=== PATIENT | female | born 1945 | race Caucasian/White ===

== ENCOUNTER 2016-11-27 20:03 | Emergency (ER) | payer OTHER ==
[~2016-11-27] VITALS: Ht 165.1 cm; Wt 59.1 kg
[2016-11-27 20:12] VITALS: BP 126/67; PULSE 74; RESP 16; O2SAT 96
--- NOTE | 2016-11-27 20:50 | ED.REPORT ---
HPI-Abd Pain F 2 and Over Date of Service Nov 27, 2016 ED Provider: Gilberto Bowman DO The pt is a 71 y/o female w/ a hx of venous stasis, scoliosis, and osteoporosis presenting to the ED complaining of two days of bilateral foot paresthesias which is causing her some instability. This is accompanied by a week of lower extremity edema and redness but she denies pain, heat, or loss of sensation in the affected area. She reports falling asleep in her chair and not wearing her compression socks for the last week. Similar symptoms have affected her intermittently for the last 5 to 10 years and usually go away when she sleeps horizontally. She reports being evaluated for DVT and was diagnosed with faulty valves consistent w/ bilateral venous stasis. The pt was seen by her PCP recently, who was concerned about the level of edema. Nursing Notes Stated Complaint: NUMBNESS,LEG SWELLING FROM UC Chief Complaint: Extremity Trauma Nursing Notes Reviewed: Yes Allergies: Coded Allergies: tetracycline (Verified Allergy, Unknown, 11/27/16) General Time Seen by MD: 20:30 Chief Complaint Other (Bilateral foot paresthesias) Hx Obtained from: Patient Arrived by: Walk-in Sudden in Onset?: No Onset Occurred: 2 days ago Symptom Duration: Since onset Recent Healthcare: No recent hospitalization, Recent doctor visit Similar Sx Previous: Yes Past Medical History Past Medical History Venous stasis Scoliosis Osteoporosis Past Surgical History none reported Smoking History Unknown if Ever Smoker Ambulatory Status Ambulatory Status: Independent Review of Systems Review of Systems Note: Bilateral foot paresthesias Instability Bilateral LE edema and redness Denies LE heat or pain Constitutional: Denies: Chills, Fever Cardiovascular: Denies: Chest pain GI: Denies: Abdominal pain Complete sys rev & neg: except as marked. Physical Exam Initial Vital Signs Vital Signs (First) Date Time Temp Pulse Resp B/P Pulse Ox O2 Delivery O2 Flow Rate FiO2 11/27/16 20:12 35.5 74 16 126/67 96 Room Air Initial VS: Reviewed Head / Eyes: Atraumatic, Normocephalic, PERRL ENT: Mucous membranes moist, Conjunctiva normal, No scleral icterus Neck: Supple, Non-tender, Full range of motion Neurologic: Alert, Oriented, Nonfocal Psychiatric: Mood/affect normal, Behavior normal, Normal thought content General / Constitutional: Awake, Alert, No apparent distress Respiratory / Chest: Atraumatic, Breath sounds NL, No respiratory distress Cardiovascular: Heart rate NL, Regular rhythm, Heart sounds NL Loud biphasic phases audible w/ handheld Doppler No DVT No acute arterial insufficiency Abdomen: Atraumatic, Soft, Non-tender Back: Atraumatic, Inspection NL, Full range of motion Skin: No rash, Warm, Dry dry, cracked skin bilaterally Lower Extremity / Pelvis / MS: Full range of motion lower extremity edema, R>L Ankle / Foot Ankle / Foot: Full range of motion Paresthesia at bottom of feet bilaterally but sensation intact Interpretation & Diagnostics Interpretation & Diagnostics: US VENOUS LEG DUPLEX UNILATERAL, RIGHT IMPRESSION: No evidence of deep vein thrombosis involving the right lower extremity. Dictated by: Teena Wright MD, PhD on 11/27/2016 at 21:43 Approved by: Teena Wright MD, PhD on 11/27/2016 at 21:43 Lab Results Interpretation Result Diagram: 11/27/16205211/27/162052 Test 11/27/16 20:53 White Blood Count 1.9th/mm3 (3.8-10.1) Red Blood Count 4.07mil/mm3 (3.90-5.20) Hemoglobin 12.7g/dL (12.0-15.6) Hematocrit 37.9% (35.0-46.0) Mean Corpuscular Volume 93.1fL (81-100) Mean Corpuscular Hemoglobin 31.2pg (27.0-35.0) Mean Corpuscular Hemoglobin Concent 33.5% (32.0-37.0) Red Cell Distribution Width 14.9% (12.3-15.4) Platelet Count 170bil/L (150-400) Neutrophils (%) (Auto) 52.1% (40-74) Lymphocytes (%) (Auto) 33.0% (14-46) Monocytes (%) (Auto) 13.4% (4-12) Eosinophils (%) (Auto) 1.0% (0-5) Basophils (%) (Auto) 0.5% (0-3) Sodium Level 132mEq/L (134-144) Potassium Level 4.3mEq/L (3.5-5.2) Chloride Level 93mEq/L (97-108) Carbon Dioxide Level 25mmol/L (18-29) Blood Urea Nitrogen 11mg/dL (8-27) Creatinine 0.54mg/dL (0.57-1.00) Estimat Glomerular Filtration Rate 159mL/min (>59) Glucose Level 93mg/dL (60-99) Calcium Level 9.6mg/dL (8.5-10.1) Total Bilirubin 0.4mg/dL (0.0-1.2) Aspartate Amino Transf (AST/SGOT) 60U/L (0-50) Alanine Aminotransferase (ALT/SGPT) 57U/L (0-32) Alkaline Phosphatase 104U/L (25-165) C-Reactive Protein 0.4mg/dL (0.0-0.5) Pro-B-Type Natriuretic Peptide 446.7pg/mL (0-301) Total Protein 6.5g/dL (6.4-8.4) Albumin 4.0g/dL (3.4-5.0) Hold Bob Top Tube Received (Received) Pulse Oximetry Interpretation Pulse Oximetry Interpretation: 96% on room air Pulse Oximetry: Pulse Ox normal Re-Eval/Medical Decision Med Decision/Clinical Course Very pleasant 71-year-old female with bilateral dependent edema that is leading to gait instability. Her right leg became a bit more erythematous today so she was sent in for evaluation. Ultrasound was performed of the right leg and there is no DVT found. Her laboratory work is reassuring. I do believe that she is developing cellulitis in the right leg and that is contributing to her symptoms. She has good sensation however she complains of tingling type sensation when her feet swell. This is not consistent with a stroke. This is consistent with local nerve irritation from the edema. She was observed in the emergency department received IV antibiotics. I have her elevate her feet and she actually looked much better. We did get her a walker to assist with ambulation and she felt very comfortable about this. She is very hesitant to be on antibiotics and she certainly does not wish to be in the hospital. She is followed by a natural path. She did agree to a Bactrim and Augmentin combination for a few days and she agrees to have follow-up on this in 24-48 hours. Source of Hx: Old records Re-Evaluation/Progress : Time of Eval: 22:41 Patient Status: Condition improved Re-Evaluation/Progress Note: Pt rechecked, who is comfortable. The diagnosis and plan for discharge are discussed. The pt understands and agrees with the plan. All questions are addressed at this time. Counseled Regarding: Diagnosis, Lab results, Need for follow-up, When/why to return to ED Discharge & Departure Impression: Primary Impression: Cellulitis of right lower extremity Disposition: Home Discharge Condition All VS Reviewed: Yes Condition: Stable Patient Instructions: Cellulitis (ED) Additional Instructions: Take Augmentin and Bactrim twice daily for 5 days. Elevate your foot as much as possible. Have your symptoms re-evaluated in 24 to 48 hours. Call your primary care physician in the morning to arrange a follow up appointment next week. Return to the emergency department if you develop any new or worsening symptoms. Referrals: Lucila Retana ND, LAc (PCP) Scribe Attestation Portions of this note were transcribed by Keith Dale and Amber Jordan. I, Dr. Bowman personally performed the history, physical exam and medical decision-making ; I reviewed and confirmed the accuracy of the information in the transcribed note. Signed by: Hayes Pinzon, 11/27/16 and [id number]. Lucila Retana ND, LAc Moses, Tai F Nov 27, 2016 20:50 AMBER JORDAN Nov 27, 2016 22:19 Gilberto Bowman DO Nov 28, 2016 00:11
[2016-11-27 21:04] LABS: Platelet Count 170 bil/L (150-400)
[2016-11-27 21:06] LABS: BASOPHILS % (AUTO) 0.5 % (0-3); MONOCYTES % (AUTO) 13.4 % (4-12); Mean Corpuscular Hemoglobin 31.2 pg (27.0-35.0); Mean Corpuscular Volume 93.1 fL (81-100); NEUTROPHILS % (AUTO) 52.1 % (40-74)
--- NOTE | 2016-11-27 21:44 | DRSVH ---
PROCEDURE: US VEINOUS LEG DUPLEX UNILATERAL, RIGHT INDICATIONS: right leg swelling TECHNIQUE: Real-time imaging, as well as color and pulse Doppler interrogation, were performed of the lower extr emity deep veins from the inguinal ligament to the popliteal fossa. COMPARISON: None. FINDINGS: The deep veins are normally compressible, and free of intraluminal thrombus. Color and pu lse Doppler demonstrate normal phasic intraluminal flow. There is normal augmentation response to di stal compression maneuver. IMPRESSION: No evidence of deep vein thrombosis involving the right lower extremity. Dictated by: Teena Wright MD, PhD on 11/27/2016 at 21:43 Approved by: Teena Wright MD, PhD on 11/27/2016 at 21:43
[2016-11-27] MEDS ORDERED: cefTRIAXone Inj 2,000 MG in Dextrose 5% Minibag Plus 50 ML IV ONE (21:45)
[2016-11-27 23:27] VITALS: BP 142/76; PULSE 68; RESP 14; O2SAT 96
== END 2016-11-27 23:27 | disposition home or self-care (01) ==
LOC: SED 20:03
DX: L03.115 Cellulitis of right lower limb (principal); Z88.1 Allergy status to other antibiotic agents
CPT/HCPCS: 36415; 80053; 83880; 85025; 86140; 87040; 93971; 96365; 99285; J0696

== ENCOUNTER 2016-11-30 22:43 | Inpatient (IN) | payer OTHER, MEDICARE ==
[~2016-11-30] VITALS: Ht 157.5 cm; Wt 63.0 kg
[2016-11-30 22:49] VITALS: BP 142/71; PULSE 67; RESP 16; O2SAT 99
--- NOTE | 2016-12-01 00:10 | ED.REPORT ---
HPI-General Illness Date of Service Dec 01, 2016 ED Provider: Dr. Seaman Pt is a 71 year old female with a hx of scoliosis and osteoporosis presenting to the ED complaining of neurological symptoms slowly progressively worsening over the past few weeks. Associated symptoms include feeling extremely weak, disoriented, trouble walking, numbness and tingling in bilateral LEs, LE swelling, nausea. Denies confusion of location, vomiting, diarrhea, bowel or bladder incontinence. Pt reports that when she has been to the chiropractor the numbness in her legs has resolved. She was supposed to follow up with a back specialist but has not seen one yet. Pt was seen in the ED 4 days ago for the LE swelling and received an ultrasound showing no signs of a blood clot. Pt has been taking antibiotics, but not water pills. Nursing Notes Stated Complaint: CANT STAND, WEAK Chief Complaint: General Complaint Nursing Notes Reviewed: Yes Allergies: Coded Allergies: tetracycline (Verified Allergy, Unknown, 11/30/16) Scheduled Amoxicillin/Clav K 875-125 mg (Amoxicillin/Clav K 875-125 mg) 875 Mg Tab 1 TABLET PO BID Sulfamethoxazole/Trimeth 400-80 mg (Bactrim 400-80 mg) 1 Each Tablet 1 TABLET PO BID Thyroid,Pork (Wilson Thyroid) 90 Mg Tablet 90 MG PO DAILY General Time Seen by MD: 00:10 Chief Complaint Weakness Hx Obtained From: Patient Arrived By: Walk-in Sudden in Onset?: No Onset Occurred: More than a week ago... (3 weeks) Symptom Duration: Intermittent Severity: Current: No pain currently Severity: Maximum: No pain Recent Healthcare: No recent hospitalization, Recent doctor visit Similar Sx Previous: No Past Medical History Past Medical History chronic loose stools Venous stasis Scoliosis Osteoporosis Past Surgical History denies Smoking History Unknown if Ever Smoker Ambulatory Status Independent Review of Systems Full Review of Systems GI: Reports: Nausea, Denies: Diarrhea, Vomiting Female: Denies: Incontinence Musculoskeletal: Reports: Extremity swelling Neurologic: Reports: Numbness, Problem walking, Weakness, Denies: Confusion Complete sys rev & neg: except as marked. Physical Exam Vital Signs Vital Signs Date Time Temp Pulse Resp B/P Pulse Ox O2 Delivery O2 Flow Rate FiO2 12/01/16 02:15 66 14 138/69 98 Room Air 11/30/16 22:49 35.8 67 16 142/71 99 Room Air Initial VS: Reviewed Head / Eyes: Atraumatic, Normocephalic, PERRL ENT: Mucous membranes moist, Conjunctiva normal, No scleral icterus Neck: Supple, Non-tender, Full range of motion Respiratory: Breath sounds normal, Clear to auscultation, No respiratory distress Cardiovascular: Regular rate & rhythm, Heart sounds normal, Intact distal pulses Abdomen / GI: Soft, Non-tender, No guarding, No rebound, No distention Extremities: Vascular intact, Neuro intact Skin: Warm, Dry, No cyanosis Neurologic: Alert, Oriented, Nonfocal Psychiatric: Mood/affect normal, Behavior normal, Normal thought content General/Constitutional: Awake, Alert, No acute distress Distress / Hydration: Positive: Dehydration mild Lower Extremity / Pelvis / MS: No deformity, Neurologic intact, Vascular intact Bilateral edema Interpretation & Diagnostics Lab Results Interpretation Result Diagram: 12/01/16 0400 12/01/16 0400 Test 12/01/16 00:50 12/01/16 01:00 Urine Color Yellow (YELLOW) Urine Appearance Clear (CLEAR,HAZY) Urine pH 7.0 (5.0-8.0) Urine Specific [place] 1.015 (1.003-1.035) Urine Protein Negativemg/dL (NEG,TRACE) Urine Glucose (UA) Negativemg/dL (NEGATIVE) Urine Ketones Tracemg/dL (NEGATIVE) Urine Occult Blood Negative (NEGATIVE) Urine Nitrite Negative (NEGATIVE) Urine Bilirubin Negative (NEGATIVE) Urine Urobilinogen Normalmg/dL (NORMAL) Urine Leukocyte Esterase Negative (NEGATIVE) Urine RBC 0-2/hpf (0-2) Urine WBC 0-5/hpf (0-5) Urine Epithelial Cells Occasional/hpf (NONE-MOD) Urine Crystals Amorphous phosphates Urine Bacteria None/hpf (NONE-FEW) Urine Hyaline Casts None/lpf (NONE) Urine Granular Casts None seen (NONE SEEN) Urine Waxy Casts None seen (NONE SEEN) Urine Red Blood Cell Casts None seen (NONE SEEN) Urine White Blood Cell Casts None seen (NONE SEEN) Urine Mucus Present (None Seen) Urine Trichomonas None seen (NONE SEEN) Urine Yeast None (NONE SEEN) Urine Culture Reflexed Not indicated Prothrombin Time 9.9sec (8.1-12.5) Prothromb Time International Ratio 0.93ratio Activated Partial Thromboplast Time 30.8sec (22.8-33.0) Magnesium Level 1.6mg/dL (1.6-2.6) Troponin T 0.014ug/L (0.0-0.011) Pro-B-Type Natriuretic Peptide 378pg/mL (0-301) ECG Interpretation ECG Interpretation: Prolonged HI interval. Probable left ventricular hypertrophy. Probable inferior infarct, old. Anterolateral Q waves, probably due to LVH. Time: 01:53 Interpreted by: ED physician Normal ECG Interpretation: Normal rate (62), Normal sinus rhythm X-Ray Chest Interpretation Chest Xray Interpretation: No acute findings. Interpretation / Wet Read by: Wet read ED physician CT C-Spine Interpretation CONCLUSION: No evidence of fracture or subluxation. Degenerative changes and disc bulge with central canal stenosis at L4-5. Osteopenia. Right nephrolithiasis. Other findings as above. This report was transmitted to the emergency room at 12/01/2016 - 12:56:16 AM PDT. Study type: CT no contrast Interpretation / Wet Read by: Interpret - Radiologist Re-Eval/Medical Decision Med Decision/Clinical Course 71-year-old female presents with progressive numbness tingling weakness in her legs. Pattern of her weakness and numbness appears consistent with spinal stenosis. A CT of the area and indeed shows significant narrowing at the L5-L6 level as predicted. She incidentally has cellulitis of her legs that is initially improving after IV antibiotics and oral antibiotics at home. Admitted now unable to walk with plan for PT evaluation, spine surgery evaluation, and social service evaluation to determine whether she can function at home or will require rehabilitation. We will continue ongoing therapy for her cellulitis. Time of Eval: 02:40 Patient Status: Condition improved Re-Evaluation/Progress Note: Discussed CT and RAD results. Discussed plan for admission. Pt understands and agrees. Consultation : Referral / Consult Name: Deepak Pereira MD Consulted With: Hospitalist Call Returned at: 02:45 Director Of Consumer Affairs: Will see patient, Agrees with plan, Accepts admit Counseled Regarding: Diagnosis, Lab results, Need for follow-up, When/why to return to ED Discharge & Departure Primary Impression: Spinal stenosis of lumbar region Additional Impressions: Back pain Cellulitis of right lower extremity Disposition: ADMITTED TO HOSPITAL Discharge Condition All VS Reviewed: Yes Condition: Improved Referrals: Lucila Retana ND, LAc (PCP) Scribe Attestation Portions of this note were transcribed by Irena Juan. I, Dr. Seaman personally performed the history, physical exam and medical decision-making; I reviewed and confirmed the accuracy of the information in the transcribed note. Signed by: Malu Randolph, 11/30/2016 at 0300. copies to: Lucila Retana ND, Eugene Dietz MD Dec 01, 2016 00:10 IRENA JUAN Dec 01, 2016 00:18 Calcium Level 9.3mg/dL (8.5-10.1) Magnesium Level 1.6mg/dL (1.6-2.6) Total Bilirubin 0.3mg/dL (0.0-1.2) Aspartate Amino Transf (AST/SGOT) 68U/L (0-50) Alanine Aminotransferase (ALT/SGPT) 66U/L (0-32) Alkaline Phosphatase 109U/L (25-165) Troponin T 0.014ug/L (0.0-0.011) Pro-B-Type Natriuretic Peptide 378pg/mL (0-301) Total Protein 6.6g/dL (6.4-8.4) Albumin 3.9g/dL (3.4-5.0) ECG Interpretation ECG Interpretation: Prolonged HI interval. Probable left ventricular hypertrophy. Probable inferior infarct, old. Anterolateral Q waves, probably due to LVH. Time: 01:53 Interpreted by: ED physician Normal ECG Interpretation: Normal rate (62), Normal sinus rhythm X-Ray Chest Interpretation Chest Xray Interpretation: No acute findings. Interpretation / Wet Read by: Wet read ED physician CT C-Spine Interpretation CONCLUSION: No evidence of fracture or subluxation. Degenerative changes and disc bulge with central canal stenosis at L4-5. Osteopenia. Right nephrolithiasis. Other findings as above. This report was transmitted to the emergency room at 12/01/2016 - 12:56:16 AM PDT. Study type: CT no contrast Interpretation / Wet Read by: Interpret - Radiologist Re-Eval/Medical Decision Time of Eval: 02:40 Patient Status: Condition improved Re-Evaluation/Progress Note: Discussed CT and RAD results. Discussed plan for admission. Pt understands and agrees. Consultation : Referral / Consult Name: Deepak Pereira MD Consulted With: Hospitalist Call Returned at: 02:45 Director Of Consumer Affairs: Will see patient, Agrees with plan, Accepts admit Counseled Regarding: Diagnosis, Lab results, Need for follow-up, When/why to return to ED Discharge & Departure Disposition: ADMITTED TO HOSPITAL Discharge Condition All VS Reviewed: Yes Condition: Improved Referrals: Lucila Retana ND, LAc (PCP) Malu Attestation Portions of this note were transcribed by Irena Juan. I, Dr. Seaman personally performed the history, physical exam and medical decision-making; I reviewed and confirmed the accuracy of the information in the transcribed note. Signed by: Malu Randolph, 11/30/2016 at 0300. copies to: Lucila Retana ND, Eugene Dietz MD Dec 01, 2016 00:10 IRENA JUAN Dec 01, 2016 00:18
[2016-12-01] MEDS ORDERED: Ondansetron 2 mg/mL 2 mL Inj IVPUSH ONE (00:25)
[2016-12-01 01:09] LABS: BASOPHILS % (AUTO) 0.3 % (0-3); MONOCYTES % (AUTO) 13.8 % (4-12); Mean Corpuscular Hemoglobin 31.8 pg (27.0-35.0); Mean Corpuscular Volume 91.1 fL (81-100); NEUTROPHILS % (AUTO) 57.7 % (40-74); Platelet Count 164 bil/L (150-400)
[2016-12-01 01:27] LABS: INR 0.93 ratio
[2016-12-01 01:35] LABS: TROPONIN T 0.014 ug/L (0.0-0.011)
[2016-12-01 01:42] LABS: APPEARANCE,URINE CLEAR (CLEAR,HAZY); COLOR,URINE YELLOW (YELLOW); OCCULT BLOOD,URINE NEGATIVE (NEGATIVE); UROBILINOGEN,URINE NORMAL (NORMAL)
[2016-12-01 01:45] LABS: Magnesium 1.6 mg/dL (1.6-2.6)
[2016-12-01 02:15] VITALS: BP 138/69; PULSE 66; RESP 14; O2SAT 98
[2016-12-01] MEDS ORDERED: Polyethylene Glycol (PEG) 17 Gm Powder PO PRN (02:55)
[2016-12-01] MEDS ORDERED: Alum-Mag Hydrox-Simeth 30 mL Suspension PO PRN (02:55)
[2016-12-01] MEDS ORDERED: THYR90TA PO (03:04)
[2016-12-01] MEDS ORDERED: SULF1TAB34 PO (03:04)
[2016-12-01] MEDS ORDERED: AGM875T PO (03:04)
--- NOTE | 2016-12-01 03:05 | PCM.HPMED ---
Subjective Date of Service Dec 01, 2016 Primary Provider: Admitting Physician: Primary Care Physician: Lucila Retana ND, LAc Attending Physician: Admit Status: From the Emergency Department, 23-Hour Observation, Non-Telemetry Chief Complaint: Unable to function at home History of Present Illness: Kathryn Rodriguez is a 71 year old female with Scoliosis and osteoporosis presenting to [facility] emergency department complaining of worsening back pain Patient complaining of difficulty walking due to back pain, progressively worsening over the past few weeks. Associated symptoms include feeling extremely weak, bilateral foot paresthesias which is causing her some instability, leg swelling and some nausea. Pain improves with patient massaging her lower back. The leg swelling were chronic due to venous stasis but swelling seems to be more than baseline. Denies any trauma or falls recently. Denies any vomiting or diarrhea, bowel or bladder incontinence. Pt reports that when she has been to the chiropractor the numbness in her legs has resolved. She was supposed to follow up with a back specialist but has not seen one yet. She was recently diagnosed with right leg swelling and cellulitis and received an ultrasound showing no signs of a blood clot. She was on Bactrim and Augmentin , she has been taking them and have a few tabs left. Case discussed with Dr Seaman. Ct scan confirmed Degenerative changes and disc bulge with central canal stenosis at L4-5. Plans to admit for further treatment Review of Systems: Pertinent positives as noted in HPI. All other systems were reviewed and are negative Allergies Coded Allergies: tetracycline (Verified Allergy, Unknown, 11/30/16) Home Medications Several herbal supplements Armor thyroid (dose unclear) PMH chronic loose stools Venous stasis Scoliosis Hypothyroidism Osteoporosis . Surgical History Right Mastectomy Tonsillectomy Family History Father had heart attack when he was older Social History Hx Alcohol Use: No Hx Substance Use: No Hx Tobacco Use: No Smoking Status: Never Smoker Living Arrangement: Alone ([place] from [place]) Exam Vital Signs Vital Sign - Last Date Time Temp Pulse Resp B/P Pulse Ox O2 Delivery O2 Flow Rate FiO2 12/01/16 02:15 66 14 138/69 98 Room Air 11/30/16 22:49 35.8 Exam General: Alert, Oriented X3, Cooperative, No acute Distress elderly woman Eyes: PERRLA, Scleral Anicteric Mouth: Mouth Normal, Mucous Membranes Moist/[place] Neck: Supple, no Thyromegaly, trachea central. Chest & Lungs: Clear to auscultation & percussion, No adventitious breath sounds, no crackles, no wheeze Cardiovascular: Normal S1, Normal S2, No Rubs/Gallops, Regular Rate/Rhythm, soft systolic murmur (No JVD, no peripheral edema) Pulses: Radial (present and equal), Dorsalis Pedi (present and equal) Abdomen: Soft, Non-tender, Non-distended, Normoactive bowel tones. Musculoskeletal: Unremarkable. Normal range of motion, no swollen or erythematous joints Extremities: No edema, no cyanosis, no clubbing. Skin: No rashes. Warm and dry, no erythematous areas +Venous stasis changes to both legs Neurological: Grossly neurologically intact, has generalized weakness, Normal Speech, Sensation Intact Lymphatic: Lymph nodes Cervical and Axillary not palpable. Lab and Diagnostics Labs Laboratory Tests Test 12/01/16 00:50 12/01/16 01:00 Urine Color Yellow (YELLOW) Urine Appearance Clear (CLEAR,HAZY) Urine pH 7.0 (5.0-8.0) Urine Specific [place] 1.015 (1.003-1.035) Urine Protein Negativemg/dL (NEG,TRACE) Urine Glucose (UA) Negativemg/dL (NEGATIVE) Urine Ketones Tracemg/dL (NEGATIVE) Urine Occult Blood Negative (NEGATIVE) Urine Nitrite Negative (NEGATIVE) Urine Bilirubin Negative (NEGATIVE) Urine Urobilinogen Normalmg/dL (NORMAL) Urine Leukocyte Esterase Negative (NEGATIVE) Urine RBC 0-2/hpf (0-2) Urine WBC 0-5/hpf (0-5) Urine Epithelial Cells Occasional/hpf (NONE-MOD) Urine Crystals Amorphous phosphates Urine Bacteria None/hpf (NONE-FEW) Urine Hyaline Casts None/lpf (NONE) Urine Granular Casts None seen (NONE SEEN) Urine Waxy Casts None seen (NONE SEEN) Urine Red Blood Cell Casts None seen (NONE SEEN) Urine White Blood Cell Casts None seen (NONE SEEN) Urine Mucus Present (None Seen) Urine Trichomonas None seen (NONE SEEN) Urine Yeast None (NONE SEEN) Urine Culture Reflexed Not indicated White Blood Count 2.9th/mm3 (3.8-10.1) Red Blood Count 4.15mil/mm3 (3.90-5.20) Hemoglobin 13.2g/dL (12.0-15.6) Hematocrit 37.8% (35.0-46.0) Mean Corpuscular Volume 91.1fL (81-100) Mean Corpuscular Hemoglobin 31.8pg (27.0-35.0) Mean Corpuscular Hemoglobin Concent 34.9% (32.0-37.0) Red Cell Distribution Width 14.9% (12.3-15.4) Platelet Count 164bil/L (150-400) Neutrophils (%) (Auto) 57.7% (40-74) Lymphocytes (%) (Auto) 27.2% (14-46) Monocytes (%) (Auto) 13.8% (4-12) Eosinophils (%) (Auto) 1.0% (0-5) Basophils (%) (Auto) 0.3% (0-3) Prothrombin Time 9.9sec (8.1-12.5) Prothromb Time International Ratio 0.93ratio Activated Partial Thromboplast Time 30.8sec (22.8-33.0) Sodium Level 125mEq/L (134-144) Potassium Level 4.5mEq/L (3.5-5.2) Chloride Level 85mEq/L (97-108) Carbon Dioxide Level 23mmol/L (18-29) Blood Urea Nitrogen 10mg/dL (8-27) Creatinine 0.82mg/dL (0.57-1.00) Estimat Glomerular Filtration Rate 98mL/min (>59) Glucose Level 85mg/dL (60-99) Calcium Level 9.3mg/dL (8.5-10.1) Magnesium Level 1.6mg/dL (1.6-2.6) Total Bilirubin 0.3mg/dL (0.0-1.2) Aspartate Amino Transf (AST/SGOT) 68U/L (0-50) Alanine Aminotransferase (ALT/SGPT) 66U/L (0-32) Alkaline Phosphatase 109U/L (25-165) Troponin T 0.014ug/L (0.0-0.011) Pro-B-Type Natriuretic Peptide 378pg/mL (0-301) Total Protein 6.6g/dL (6.4-8.4) Albumin 3.9g/dL (3.4-5.0) Result Diagram: 12/01/169912/01/1699 X-Rays, CTs and MRIs US VENOUS LEG DUPLEX UNILATERAL, RIGHT IMPRESSION: No evidence of deep vein thrombosis involving the right lower extremity. Dictated by: Teena Wright MD, PhD on 11/27/2016 at 21:43 Approved by: Teena Wright MD, PhD on 11/27/2016 at 21:43 CT C-Spine Interpretation CONCLUSION: No evidence of fracture or subluxation. Degenerative changes and disc bulge with central canal stenosis at L4-5. Osteopenia. Right nephrolithiasis. Other findings as above. This report was transmitted to the emergency room at 12/01/2016 - 12:56:16 AM PDT. Study type: CT no contrast Interpretation / Wet Read by: Interpret - Radiologist Assessment & Plan Kathryn Rodriguez is a 71 year old female with Scoliosis and osteoporosis presenting to [facility] emergency department complaining of worsening back pain 1 Acute on Chronic back pain due to Spinal L4-L5 stenosis. Present on admission Chronic issues now causing some disability for the patient. Patient lives alone and independently - Physical therapy assessment - Orthopedic consultation to consider surgical options - Oxycodone PRN pain - Social work consultation 2 Right leg cellulitis. Present on admission. Improving and resolving Treated with Bactrim and Augmentin. No evidence of Deep vein thrombosis. No Urinary tract infections - continue Augmentin daily 3 Hyponatremia. Present on admission Suspect due to hypovolemia and dehydration. Thyroid disease cause be a cause - trial of fluids and monitor for response - patient not on any diuretics 4 Mild elevated transaminase. Present on admission - Hepatitis panel ordered including Hepatitic C 5. Hypothyroidism - checking TSH - Acetaminophen as needed for mild pain/fever/headache - Bowel regimen as needed - Antiemetic as needed Patient is admitted under observation status with expected length of stay less than 2 midnights due to severity of presenting symptoms, risk of adverse event, and complexity of treatment plan . VTE Prophylaxis: Sub-Q Heparin (Unfractionated) Resuscitation Status: CPR: Attempt Resuscitation Deepak Pereira MD Dec 01, 2016 03:05
[2016-12-01 04:07] VITALS: BP 135/76; PULSE 71; RESP 14; O2SAT 99
[2016-12-01 04:08] LABS: BASOPHILS % (AUTO) 0.4 % (0-3); EOSINOPHILS % (AUTO) 0.8 % (0-5); MONOCYTES % (AUTO) 17.1 % (4-12); Mean Corpuscular Volume 91.2 fL (81-100); NEUTROPHILS % (AUTO) 45.3 % (40-74); Platelet Count 147 bil/L (150-400)
--- NOTE | 2016-12-01 04:30 | NUR ---
Admit Pt admitted to floor via stretcher by Kyle Gant RN. Report given by Kyle Gant RN. Pt slide from stretcher to bed due to general weakness. BP slightly elevated and temp was 35.3 which is consistent with ED vitals. Pt reported having zero pain.
[2016-12-01 04:52] VITALS: BP 152/73; PULSE 69; RESP 16; O2SAT 97
[2016-12-01] MEDS: 0.9% Sodium Chloride 1,000 ML IV SCH ×4 (05:16→23:01)
[2016-12-01 08:00] VITALS: BP 136/63; PULSE 70; RESP 18; O2SAT 92
--- NOTE | 2016-12-01 09:15 | DRSVH ---
PROCEDURE: X-RAY CHEST ONE VIEW, PORTABLE ([id number]) INDICATIONS: weakness TECHNIQUE: One view of the chest was acquired. COMPARISON: [facility], CR, XR CHEST 2VW, 03/19/2016, 15:49. FINDINGS: Surgical changes and devices: Right axillary surgical clips. Lungs and pleura: No pleural effusions or pneumothorax. Lung volumes are increased and the hemidiap hragms are flattened. Ill-defined density projected over the right upper lobe at the level of the fi rst anterior rib. Lungs otherwise are clear. Mediastinum: Mediastinal contours appear normal. Heart size is normal. Bones and chest wall: No suspicious bony lesions. Overlying soft tissues appear unremarkable. IMPRESSION: Lung volumes are increased suggesting COPD, correlate with pulmonary functions test. Ill-defined spiculated density projected over the right upper lobe at the level of the first right an terior and rib which may be related to summation shadow or costochondral calcification but pulmonary nodule cannot be excluded. When clinically feasible recommend 2 view chest radiograph for further as sessment. Dictated by: Familia Winston [facility] Interpreted: Teena Wright MD on 12/01/2016 at 9:12 Transcribed by: JUDY on 12/01/2016 at 9:14 Approved by: Teena Wright MD, PhD on 12/01/2016 at 11:27
[2016-12-01] MEDS: Amoxicillin-Clav 875-125 mg Tablet PO SCH ×2 (09:51→19:53)
[2016-12-01] MEDS: Heparin 5,000 Unit/mL Inj SUBQ SCH ×2 (09:51→17:33)
--- NOTE | 2016-12-01 09:57 | DRSVH ---
PROCEDURE: CT LUMBAR SPINE WITHOUT CONTRAST ([id number]) INDICATIONS: spinal stenosis suspected--bilat leg numbness, wea TECHNIQUE: Noncontrast 3 mm thick sections acquired from the T12 level to the sacrum. Sagittal and coronal refo rmats were constructed. For radiation dose reduction, the following was used: automated exposure co ntrol. COMPARISON: None. FINDINGS: Image quality: Excellent. Bones: There is trace retrolithesis or L1 on L2, L2 on L3, L3 on L4 and trace anterolithesis of L4 o n L5. Degnerative vaccuum disk are present at L4-5. No acute vertebral body compression fractures. No suspicious lytic or blastic bony lesions. Multilevel disc bulges are present from L1-2 through L5-S1. Minimal spinal stenosis is present at L1 -2, L2-3, moderate L3-4, severe L4-5, moderate L5-S1. Mild to moderate bilateral foraminial narrowin g at L1-2, moderate right and moderate to severe left L2-3, moderate bilateral L3-4, moderate right a nd severe left L4-5, mild bilateral L5-S1. Mulilevel facet arthropathy. Soft tissues: No retroperitoneal masses or hematomas. Hyperdenisity is present in the left kidney, measuring 6 mm. Four punctate calcifications, nonobstructing in the right kidney. Visualized aorta i s normal in caliber. IMPRESSION: 1. Multilevel degenerative changes. 2. Prominent spinal stenosis , most notable at L4-5, secondary to disc bulge and facet arthropathy. 3. Multilevel foraminal narrowing, most notable at L2-3, L4-5, primarly secondary to facet arthropat hy. 4. Multiple nonobstructing renal calcifications, right greater than left. The hyperdense focus coul d also represent a hyperdense cyst, given the less prominent appearance of hyperdensity. Dictated by: Yissel Palacio M.D. on 12/01/2016 at 9:39 Approved by: Yissel Palacio M.D. on 12/01/2016 at 9:55
[2016-12-01 12:00] VITALS: BP 138/70; PULSE 67; RESP 16; O2SAT 93
--- NOTE | 2016-12-01 13:08 | NUR ---
Social Work Note - Initial Assessment: D/A: See Initial Assessment. The Pt is a 71 y/o female that was admitted for spinal stenosis loss of ambulation ability. The Pt's PCP is NAZARIO Coyne and her insurance is [facility] [employer] [facility], no LTC or VA benefits reported. EMR reviewed. SW met with the Pt initial and then the Pt's friend Kellen at a later date. Pt was originally unable to participate in the initial assessment due to weakness. The Pt lives alone in a one story home in [place]. The Pt does not have an Advanced Directive on file, paperwork provided. The Pt has one daughter who lives in [facility] who is flying out tonight and should be here tomorrow 12/02/16 afternoon. The Pt's friend reported that the Pt was living independently up until a couple weeks ago, friend has been checking-in and helping as needed for the last week. The Pt continued to drive before hospitalization and uses a walker. No HH/SNF history reported. Pt discussed in morning rounds, Pt likely to discharge in 1-2 more days. PT adebayo requested. SW to follow. P: Pt not medically stable for discharge, likely to discharge in 1-2 days. PT adebayo requested. Daughter to arrive from [place] 12/02/16. SW to follow. [employer] Addendum: 12/01/16 at 1314 by SHARRON SKY SS Amended: Links added. Addendum: 12/01/16 at 1545 by AMPARO CHAVEZ SW academic intern note reviewed. Amparo Gandhi,LANDSCAPE TECHNICIAN
[2016-12-01] MEDS: Ondansetron 2 mg/mL 2 mL Inj IVPUSH PRN ×2 (16:31→19:53)
[2016-12-01] MEDS ORDERED: Ketorolac 15 mg/mL Inj IVPUSH PRN (17:10)
[2016-12-01] MEDS ORDERED: TURM500C7 PO (17:19)
[2016-12-01] MEDS ORDERED: CHRO1TAB8 PO (17:19)
[2016-12-01] MEDS ORDERED: GINK60CA PO (17:19)
[2016-12-01] MEDS ORDERED: MULT1CAP33 PO (17:19)
[2016-12-01] MEDS ORDERED: VITA1TAB22 PO (17:19)
[2016-12-01] MEDS ORDERED: [UNRECOGNIZED DRUG - OTHER] PO (17:19)
[2016-12-01] MEDS ORDERED: PRED5DRO6 BOTH_EYES (17:19)
[2016-12-01] MEDS ORDERED: [UNRECOGNIZED DRUG - CODE] PO (17:19)
[2016-12-01] MEDS ORDERED: [UNRECOGNIZED DRUG - OTHER] PO (17:19)
[2016-12-01] MEDS ORDERED: [UNRECOGNIZED DRUG - OTHER] PO (17:19)
[2016-12-01] MEDS ORDERED: GOTU435C PO (17:19)
[2016-12-01] MEDS ORDERED: MACA500C PO (17:19)
[2016-12-01] MEDS ORDERED: SULF1TAB7 PO (17:24)
--- NOTE | 2016-12-01 17:25 | PCM.PNMED ---
Subjective Date of Service Dec 01, 2016 Subjective Patient c/o L>R foot pain, says she gets sudden flashes of pain. Does not think it is burning sensation. She does not have fevers, just feels cold. Denies cauda equina. Did not take any pain med all day, did not wotk with PT due to weakness. She is nauseated. Says she is stressed out but denies GERD. No RUQ pain. Ate only part of her meal this am/ no other concerns. Apparently she was independently functioning at home until 2 weeks ago. Her daughter will be flying in tomorrow from [place]. Patient states that she misses her daughter very much. Staff said she declined by mouth pain medication. Exam Vital Signs Vital Sign - Last Date Time Temp Pulse Resp B/P Pulse Ox O2 Delivery O2 Flow Rate FiO2 12/01/16 04:55 35.3 12/01/16 04:52 69 16 152/73 97 Room Air Exam General: NAD, laying in bed, speaking in low voice HEENT: NCAT Eyes: [place] conjunctivae. No ptosis Neck: No masses, trachea midline, no thyromegaly Lungs: CTA with normal respiratory effort, no crackles or wheezes CV: RRR, no murmurs/rubs/gallops, normal PMI GI: Soft, non-tender with no hepatosplenomegaly MSK: Reduced strength in left lower extremity compared to right, no digital cyanosis Skin: Mild erythema and sloughing is present on both lower legs, feet are warm and dry Vascular: Dorsalis pedis pulses palpable Psych: A&O X3, with appropriate affect IVs and Medications IV Fluids Normal saline 100 mL/h Medications Reviewed: Medications were reviewed in detail Lab and Diagnostics Result Diagram: 12/01/16 0400 12/01/16 0400 X-Rays, CTs and MRIs US VENOUS LEG DUPLEX UNILATERAL, RIGHT IMPRESSION: No evidence of deep vein thrombosis involving the right lower extremity. Dictated by: Teena Wright MD, PhD on 11/27/2016 at 21:43 Approved by: Teena Wright MD, PhD on 11/27/2016 at 21:43 CT C-Spine Interpretation CONCLUSION: No evidence of fracture or subluxation. Degenerative changes and disc bulge with central canal stenosis at L4-5. Osteopenia. Right nephrolithiasis. Other findings as above. This report was transmitted to the emergency room at 12/01/2016 - 12:56:16 AM PDT. Study type: CT no contrast Interpretation / Wet Read by: Interpret - Radiologist Assessment & Plan Kathryn Rodriguez is a 71 year old female with Scoliosis and osteoporosis presenting to [facility] emergency department complaining of worsening back pain 1 Acute on Chronic back pain due to Spinal L4-L5 stenosis. Present on admission Chronic issues now causing some disability for the patient. Patient lives alone and independently - Physical therapy assessment - Orthopedic consultation to consider surgical options - Oxycodone PRN pain - Social work consultation -- Added morphine IV pain medication, gabapentin, ketorolac IV -- We will consider Robaxin 2 Right leg cellulitis. Present on admission. Improving and resolving Treated with Bactrim and Augmentin. No evidence of Deep vein thrombosis. No Urinary tract infections - continue Augmentin daily 3 Hyponatremia. Present on admission Suspect due to hypovolemia and dehydration. Thyroid disease cause be a cause - trial of fluids and monitor for response - She had an improved response to fluids midday, but went back down to 124 cords and the day could be due to GI losses. -- We will go ahead and add urine osmolality, serum osmolality, urine sodium, random cortisol in regard to determine the etiology. -- We will add BNP 4 Mild elevated transaminase. Present on admission - Hepatitis panel ordered including Hepatitic C 5. Hypothyroidism - checking TSH: WNL -- We will continue home meds once that reviewed by the admission nurse - Acetaminophen as needed for mild pain/fever/headache - Bowel regimen as needed - Antiemetic as needed Patient is admitted under observation status with expected length of stay less than 2 midnights due to severity of presenting symptoms, risk of adverse event, and complexity of treatment plan . Pain Evaluation: Pain not Controlled GI Prophylaxis: H2 michelle VTE Prophylaxis: Sub-Q Heparin (Unfractionated) Resuscitation Status: CPR: Attempt Resuscitation Carline Cummings DO Dec 01, 2016 06:27
[2016-12-01 18:38] VITALS: BP 145/69; PULSE 62; RESP 19; O2SAT 94
--- NOTE | 2016-12-01 19:38 | NUR ---
Nausea/vomiting Patient nauseous at beginning of shift, vomited after bites of breakfast and at 17:00, Zofran IV given with relief. Patient still nauseous when moving. Will continue to monitor. Daughter will be in tonight from [facility].
[2016-12-01] MEDS: Famotidine Inj 20 MG in IV Premix 1 EACH IV SCH (19:53)
[2016-12-02] MEDS: Heparin 5,000 Unit/mL Inj SUBQ SCH ×3 (02:22→18:18)
[2016-12-02 03:11] LABS: Hepatitis A Antibody IgM Negative (Negative); Hepatitis B Core Antibody IgM Negative (Negative)
[2016-12-02 06:22] VITALS: BP 110/59; PULSE 62; RESP 14; O2SAT 95
[2016-12-02 06:41] LABS: BASOPHILS % (AUTO) 0.5 % (0-3); EOSINOPHILS % (AUTO) 0.5 % (0-5); MONOCYTES % (AUTO) 9.1 % (4-12); Mean Corpuscular Hemoglobin 31.7 pg (27.0-35.0); Mean Corpuscular Volume 93.6 fL (81-100); NEUTROPHILS % (AUTO) 64.5 % (40-74); Platelet Count 131 bil/L (150-400)
--- NOTE | 2016-12-02 06:43 | NUR ---
Lethargy Pt has been very lethargic all night, a&ox3 when woken, but reports feeling "exhausted". Pt able to rest well through the night, wakes up well with encouragement. Pt was incontinent of stool this morning, good strength and can bridge to get bedpan underneath. Pt denies pain, and has been compliant with all other medications.
--- NOTE | 2016-12-02 07:15 | NUR ---
Code stroke Patient was seen around 07:10, non responsive, Right sided facial droop noted, unable to verbalize, barely arrousable, Code stroke called. Responders in the room at 0715 am. Vital signs checked, Temp- 34 / axillary, BP= 138/58, RR= 10, o2 Sats= 96%. O2 at 2 L via NC, blood sugar checked = 23 @ 0715, then 24 @ 0716. Bolus of D50 given, patient gradually responding to verbal stimuli. Blood sugar rechecked @ [address] Cummings assessed patient made orders and carried out. Patient stabilize. Event ended @ 0740. Will continue to monitor.
--- NOTE | 2016-12-02 08:16 | PCM.PNMED ---
Subjective Date of Service Dec 02, 2016 Exam Vital Signs Vital Sign - Last Date Time Temp Pulse Resp B/P Pulse Ox O2 Delivery O2 Flow Rate FiO2 12/02/16 06:22 36.1 62 14 110/59 95 Room Air Intake and Output 12/01/16 12/01/16 12/02/16 Cumulative From/Thru 15:00 23:00 07:00 11/30/16 22:49 - 12/02/16 06:22 Intake Total 1403 ml 1012 ml 2415 ml Output Total 600 ml 200 ml 800 ml Balance 803 ml 812 ml 1615 ml Intake Oral 350 ml 350 ml IV Total 1053 ml 1012 ml 2065 ml Output Urine Total 600 ml 200 ml 800 ml # Voids 1 1 # Bowel Movements 1 1 Exam Gen.: Patient appeared to be in mild distress this morning, she could not speak very clearly for some time but regained her speech thereafter HEENT: Normocephalic, atraumatic Heart: Regular rate and rhythm no S3-S4 murmurs Lungs: Clear to auscultation Abdomen: Soft nontender normal bowel sounds Psych: Mildly anxious Neuro: CN II-12 grossly normal, patient felt a bit unstable with Romberg's but no arm drift was noted, unable to elicit patellar and Achilles tendon reflexes. Withdraws feet to Babinski's, dirnks-rm-foax within normal, wqgs-ro-durl within normal, extraocular movements within normal Musculoskeletal: Upper extremity and lower extremities strength is symmetric and equal IVs and Medications IV Fluids None Medications Reviewed: Medications were reviewed in detail Lab and Diagnostics Result Diagram: 12/02/16 0545 12/02/16 0545 X-Rays, CTs and MRIs US VENOUS LEG DUPLEX UNILATERAL, RIGHT IMPRESSION: No evidence of deep vein thrombosis involving the right lower extremity. Dictated by: Teena Wright MD, PhD on 11/27/2016 at 21:43 Approved by: Teena Wright MD, PhD on 11/27/2016 at 21:43 CT C-Spine Interpretation CONCLUSION: No evidence of fracture or subluxation. Degenerative changes and disc bulge with central canal stenosis at L4-5. Osteopenia. Right nephrolithiasis. Other findings as above. This report was transmitted to the emergency room at 12/01/2016 - 12:56:16 AM PDT. Study type: CT no contrast Interpretation / Wet Read by: Interpret - Radiologist Echocardiogram Report Reason For Study: Dizziness Interpretation Summary Normal left ventricle size with ejection fraction 60-65%. Severely dilated left atrium. Moderately dilated right atrium. Mild aortic valve sclerosis. Mild to moderate aortic regurgitation. Mild mitral annular calcification. Mild mitral regurgitation. Mild tricuspid regurgitation. The right ventricular systolic pressure is estimated at 40 mmHg assuming a right atrial pressure of 15 mm Hg. Comparison is made with the echocardiogram of 01/08/2015, there has been no significant change. Electronically signed by: Bessie Denise on Reading Physician:12/02/2016 03:03 PM Assessment & Plan Kathryn Rodriguez is a 71 year old female with Scoliosis and osteoporosis presenting to [facility] emergency department complaining of worsening back pain 1 Acute on Chronic back pain due to Spinal L4-L5 stenosis. Present on admission Chronic issues now causing some disability for the patient. Patient lives alone and independently - Physical therapy assessment - Orthopedic consultation to consider surgical options - Oxycodone PRN pain - Social work consultation -- Added morphine IV pain medication, gabapentin, ketorolac IV -- We will consider Robaxin 2 Right leg cellulitis. Present on admission. Improving and resolving Treated with Bactrim and Augmentin. No evidence of Deep vein thrombosis. No Urinary tract infections - continue Augmentin daily. It is unclear when her last dose would be. Check with the patient 12/03 am. 3 Hyponatremia. Present on admission Suspect due to hypovolemia and dehydration. Thyroid disease cause be a cause - trial of fluids and monitor for response - She had an improved response to fluids midday, but went back down to 124 cords and the day could be due to GI losses. -- We will go ahead and add urine osmolality, serum osmolality, urine sodium, random cortisol in regard to determine the etiolog: These labs point in the direction of SIADH -- Echocardiogram is ordered and result is pending -- Fluids. I discontinued 12/02 a.m., fluid restriction as ordered. Consult to Dr. Salmeron. He will see the patient, the patient the recommendations -- Consulted endocrinology as she is also severely hypoglycemic on the morning of 12/02, Dr. Salmeron expressed concern for adrenal insufficiency. -- CT chest with scan is ordered per Dr. Salmeron's recommendations: Follow up on the result, follow Dr. Salmeron's recommendations 4. Hypoglycemia -- Blood glucose was 21 on the a.m. of 12/02, protocol was initiated with D5 -- Patient was thought to be having a stroke, code stroke was called. -- Patient eventually recovered after receiving the D5 amp, completely back to back normal -- CT of head was ordered, negative for acute findings. -- EKG was ordered and did not show any acute findings or changes -- There is certainly a concern for adrenal insufficiency per Dr. Salmeron. -- Due to her glucose checks are ordered -- Code stroke was called 12/02 morning it was not clear immediately what was wrong with patient. Serum ammonia levels, acetone levels, lactic acid are all within normal 5 Mild elevated transaminase. Present on admission - Hepatitis panel ordered including Hepatitic C: Negative 6. Hypothyroidism - checking TSH: WNL -- We will continue home meds once that reviewed by the admission nurse - Acetaminophen as needed for mild pain/fever/headache - Bowel regimen as needed - Antiemetic as needed Patient is admitted under observation status with expected length of stay less than 2 midnights due to severity of presenting symptoms, risk of adverse event, and complexity of treatment plan: Please consider changing patient's status to inpatient as this is a very complicated case and she will definitely meet inpatient criteria. Expected discharge maybe 4-5 days away . GI Prophylaxis: H2 michelle VTE Prophylaxis: Sub-Q Heparin (Unfractionated) Resuscitation Status: CPR: Attempt Resuscitation Carline Cummings DO Dec 02, 2016 08:16
[2016-12-02] MEDS: Ondansetron 2 mg/mL 2 mL Inj IVPUSH PRN (08:24)
--- NOTE | 2016-12-02 08:24 | DRSVH ---
PROCEDURE: CT BRAIN WITHOUT CONTRAST ([id number]) INDICATIONS: slurred speech TECHNIQUE: Noncontrast 4.5 mm thick angled axial sections acquired from the foramen magnum to the vertex, with c oronal reformats. COMPARISON: None. FINDINGS: Image quality: Excellent. CSF spaces: Basal cisterns are patent. No extra-axial fluid collections. The ventricles are symmet cynthia in size and shape. Brain: No intracranial bleeds or masses. There is cerebral volume loss for age, with resultant vent ricular and sulcal prominence. There are periventricular and deep white matter chronic small vessel ischemic changes. There is intracranial internal carotid artery atherosclerosis. Skull and face: Calvarium and visualized facial bones appear intact, without suspicious lesions. Sinuses: Visualized sinuses and mastoids are clear. IMPRESSION: No acute intracranial disease process. Dictated by: Teena Wright MD, PhD on 12/02/2016 at 8:20 Approved by: Teena Wright MD, PhD on 12/02/2016 at 8:23
[2016-12-02 08:42] LABS: Creatine Kinase 92 U/L (21-215); TROPONIN T < 0.010 ug/L (0.0-0.011)
[2016-12-02] MEDS ORDERED: Cosyntropin 0.25 mg/mL Inj IV ONE (08:55)
--- NOTE | 2016-12-02 09:51 | CONS ---
[address] [address] CONSULTATION REPORT PATIENT: JAN HARDING : 1945 MR#: [id number] ADMIT: 12/01/2016 JOB ID: [id number] CORRECTED REPORT: DATE OF SERVICE: 12/02/2016 RENAL CONSULTATION: HISTORY: The patient is a 71-year-old, female, who was admitted to [facility] for progressive weakness, loss of appetite, poor memory, and worsening of her back pain. At time of admission, her sodium is 125, and renal consultation is being sought for further evaluation of her hyponatremia. The patient freely states that over the last several weeks to months she has had a marked decrease in her memory. This has been associated with poor appetite, nausea, vomiting, some unsteadiness with her gait and she describes generalized "shakiness." She also states that for the last year she has had increased salt cravings. 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 However, she does not know the names of these. She also states that she is gluten intolerant, and is on a thyroid supplement, again from her pipe f[employer]. In the emergency department as noted above her sodium is 125. Her blood pressure was normal, and she had no other signs of volume depletion including a negative exam for poor skin turgor, and there was no edema present. She was empirically started on normal saline at 100 mL an hour. This continued for well over 36 hours. Her sodium subsequently dropped to 124. However, the saline was continued. Serum osmolarity was measured and this was 262, and subsequent urine osmolarity was 418 with a urine sodium of 125. During her admission she had several doses of Toradol for pain. She does state that she drinks well water but not excessively. However, she was unable to fully quantify this because of her memory issues. She does have a history of osteoarthritis and what sounds like Raynaud phenomena. She denies a history of gout, lupus, or rheumatoid arthritis. She denies any history of any swallowing difficulties or calcium deposits in her skin. Otherwise, she denies any headache, visual disturbances, amaurosis fugax, cough, wheezing, chest pain, shortness of breath, jaundice, weight change, fever, chills, or rashes. She does have considerable arthralgias in her hands and has a history of scoliosis with severe back problems. In the emergency department a chest x-ray revealed a small lung nodule, CT of the head showed some increase in the ventricular size and diffuse small vessel disease, and her back x-ray also revealed some spinal stenosis. PAST MEDICAL HISTORY: Significant for scoliosis, osteoarthritis, Raynaud phenomenon, and a questionable history of hypothyroidism and gluten intolerance. Otherwise, she denies a history of any prior stroke, seizure, asthma, emphysema, myocardial infarction, rheumatic fever, congestive heart failure, hepatitis. However, she does have a history of breast cancer approximately 15 years ago which was treated by a lumpectomy. She did not have any followup radiation or chemo. PAST SURGICAL HISTORY: Remarkable for tonsillectomy and breast cancer lumpectomy as detailed above. ALLERGIES: She is allergic to TETRACYCLINE. SOCIAL HISTORY: She denies use of alcohol, tobacco, or illicit drugs. She states that until recently she had been able to provide for her own needs and perform her activities of daily living. Also, as noted above, she is on a number of herbal supplements including desiccated thyroid. FAMILY HISTORY: Unremarkable. REVIEW OF SYSTEMS: Detailed above. Otherwise, her renal history is negative for any history of any prior hematuria, proteinuria, recurrent urinary tract infections, renal lithiasis, or frequent use of nonsteroidal anti-inflammatories prior to this admission. PHYSICAL EXAMINATION: Revealed a pale, thin, ill-appearing 71-year-old, white female, who was alert and oriented x3, in no distress at the time of my evaluation. Her blood pressure is 110/60 with a pulse rate of 62. HEENT examination is remarkable for moderate bilateral conjunctival injection and pale sclerae. Oral mucosa was moist, and there was no evidence of any thrush. Neck is supple without adenopathy, thyromegaly, or jugular venous distention. Lungs are clear to auscultation with some mild hyper-resonance noted. Heart was regular and rhythmical with a grade 2/6 systolic ejection murmur. Abdomen is soft, without any tenderness, rebound, guarding, masses, or hepatosplenomegaly. Extremities do not show any evidence of any clubbing, cyanosis, or edema. She did appear to have some chronic woody type skin changes of both distal lower extremities, and some excoriations were also noted. Examination of her hand showed diffuse Heberden and Faina nodes, and her skin showed multiple ecchymoses. Skin turgor was normal. Her mental status was remarkable for a cloudy sensorium, and the patient seemed to have difficulties with specific facts. LABORATORY EXAMINATION: This morning her white count was 2.1, hemoglobin 11.3, hematocrit 33.4, platelet count was 131, her differential showed 65 neutrophils and 25 lymphocytes. Her sodium is 127, potassium 4.8, chloride of 90, bicarbonate of 19, BUN and creatinine were 13 and 0.71, respectively. She did have a hypoglycemic episode this morning with a glucose of 21, which responded to 50% dextrose. Her lactic acid is 1.0. Calcium is 9.1. Liver function study is remarkable for a slight increase in the ALT at 47. Urinalysis on admission showed a specific gravity of 1.015, pH was 7. Tests for ketones were trace. Otherwise, protein, glucose and occult blood were negative. As noted above, her serum osmolarity was 262 with a urine osmolarity of 418 and a urine sodium of 128. IMPRESSION: 1. Syndrome of inappropriate secretion of antidiuretic hormone secondary to possible lung mass along with herbal supplements, normal saline during this admission, and Toradol. 2. Euvolemic hyponatremia secondary to syndrome of inappropriate secretion of antidiuretic hormone. 3. Metabolic acidosis with hypoglycemia. I am very concerned about the coexistence of adrenal insufficiency in this patient. 4. Leukopenia. 5. Lung mass. RECOMMENDATION: We need to immediately stop both the Toradol and the normal saline, and the patient needs to be on an 800 mL fluid restriction. I would also like to check an KRYSTIN, serum protein electrophoresis, uric acid, rheumatoid factor, C4, C3, sed rate, and I would have like to obtain an echocardiogram. In addition, I am going to order an emergent cosyntropin challenge, and we will be getting three cortisol specimens following this. Once this is obtained, I am going to give her hydrocortisone 100 mg. We also need to follow her labs very closely. I would strongly urge further recommendations on her pulmonary nodule, as this may be also part of her clinical picture. Once again, I would like to thank you for allowing me to participate in the care of this rather interesting and unfortunate patient. I will be following her closely with you. Corrected by LUCA 12/31/16 at 1:40pm DOS.
[2016-12-02] MEDS: Amoxicillin-Clav 875-125 mg Tablet PO SCH ×2 (10:26→21:49)
[2016-12-02] MEDS: Famotidine Inj 20 MG in IV Premix 1 EACH IV SCH ×2 (10:26→21:49)
[2016-12-02 13:00] VITALS: BP 105/53; PULSE 63; RESP 20; O2SAT 98
--- NOTE | 2016-12-02 13:28 | NUR ---
NUTRITION ASSESSMENT: ASSESS: 71YO F admit with SIADH,leukopenia, back pain and noted lung mass; to undergo ECHO per MD notes. Pt reports decreased appetite, n/v. Hypoglycemic episodes noted with recent blood glucose of 21. PMHX: Osteoarthritis,Reynauds,scoliosis,breast CA s/p surgery DIET: General. PO 0-25% LABS: Alb 3.2, Glu 21 MEDS: Reviewed GI:+ BM 12/02 WEIGHT: 63.0kg BMI: 25.4 EST.NEEDS: 8827-0319 kcal,60-75g pro (25-30kcal/kg;1.0-1.2g/kg pro) NUTRITION DIAGNOSIS: (1) Inadequate oral intake related to decreased appetite, n/v as evidenced by po intake 0-25% x 1d and reported depressed appetite prior to admit. INTERVENTION: (1) Spoke with pt re high protein/kcal diet to maximize kcal intake. (2) Supplements added to meal trays per pt preference. (3) Left educational material with pt. Briefly discussed hypoglycemia management. MONITOR/EVALUATE: PO intake, lab values, weight, labs. F/U per moderate risk.
--- NOTE | 2016-12-02 15:11 | NUR ---
Social Work: Continued d/c planning Data: Pt is on day 1 of hospitalization. EMR reviewed, pt discussed in rounds. MD states pt likely to remain in hospital at least 2 more days. PT states pt walking 15 feet at this time. WRI[facility] CL[facility]ER will follow up with pt regarding SNF choice. WRI[facility] CLOSER will continue to follow. Assessment: Pt who is independent at baseline. Plan: WRIST CLOSER will follow up with pt regarding SNF choice and make referrals. WRIST CLOSER will continue to follow. JESSIE Ordaz
--- NOTE | 2016-12-02 15:21 | DRSVH ---
[address] [place] [address] Echocardiogram Report Name: JAN HARDING RStudy Date : 12/02/2016 Height: 62 in Hospital Exam Location: [facility] Weight: 139 lb Gender: Female BSA: 1.6 m2 : 1945 Age: 71 yrs BP: 110/59 mmHg Reason For Study: Dizziness Ordering Physician: Performed By: [facility] Staff Interpretation Summary Normal left ventricle size with ejection fraction 60-65%. Severely dilated left atrium. Moderately dilated right atrium. Mild aortic valve sclerosis. Mild to moderate aortic regurgitation. Mild mitral annular calcification. Mild mitral regurgitation. Mild tricuspid regurgitation. The right ventricular systolic pressure is estimated at 40 mmHg assuming a right atrial pressure of 15 mm Hg. Comparison is made with the echocardiogram of 01/08/2015, there has been no significant change. Procedure: A two-dimensional transthoracic echocardiogram with color flow and Doppler was performed. The study quality was technically good. Comparison is made with the echocardiogram of 01/08/2015. The patient was in normal sinus rhythm during the exam. Left Ventricle: The left ventricle is normal in size. There is normal left ventricular wall thickness. The ejection fraction is estimated to be 60-65%. There are no focal wall motion abnormalities. Assessment of diastolic parameters indicates a relaxation abnormality of the left ventricle, consistent with normal filling pressures. Right Ventricle: The right ventricle is normal in size and function. Atria: The left atrium is severely dilated. The right atrium is moderately dilated. The interatrial septum is intact with no evidence for an atrial septal defect. Mitral Valve: There is mild mitral annular calcification. The mitral valve leaflets appear mildly thickened, but open well. The mitral valve leaflets appear to open well. There is no mitral valve stenosis. There is mild mitral regurgitation. Aortic Valve: The aortic valve is trileaflet. The aortic valve opens well. There is mild aortic valve sclerosis. There is no aortic valve stenosis. There is mild to moderate aortic regurgitation. Tricuspid Valve: The tricuspid valve is normal in structure and function. There is mild tricuspid regurgitation. The right ventricular systolic pressure is estimated at 40 mmHg assuming a right atrial pressure of 15 mm Hg. Pulmonic Valve: The pulmonic valve is normal in structure and function. There is trace pulmonic regurgitation. Great Vessels: The aortic root is normal size. The dimensions of the ascending aorta are normal. The pulmonary artery is normal size. The IVC is dilated (diameter is greater than 2.1 cm) and it collapses less than 50% with a sniff. This suggests a high right atrial pressure of 15 mm Hg. Pericardium/ Pleura There is no pericardial effusion. There is no pleural effusion. MMode/2D Measurements & Calculations LVIDd: 4.8 cm LA dimension: 3.7 cm RA long axis LVOT diam LVIDs: 3.6 cm FS: 24.4 % LA A2 area: 31.1 cm RA area AoV Opening EPSS: 0.76 cm LA A4 area: 22.7 cm IVSd: 0.87 cm LA length (vol): 6.1 cm: 17.9 cm Ao root diam LVPWd: 0.52 cm LA vol: 98.2 ml RA vol LA vol index : 54.4 ml asc Aorta RA Diam: 3.0 cm : 33.2 mm2 IVC diam: 2.8 cm LV goddard. diameter/BSA LV sys. diameter/BSA RVD1 (basal) RVD2 (mid) (cm/m^2): 2.9 (cm/m^2): 2.2 : 3.2 cm TAPSE: 2.3 cm Doppler Measurements & Calculations Ao V2 max MV E max regulo MV E/A: 0.75 TR max regulo : 144.0 cm/sec : 65.5 cm/sec Med Peak E' Regulo : 250.6 cm/sec Ao max P.3 mmHgMV A max regulo TR max PG Ao mean PG : 87.4 cm/sec E/E' med: 8.7 : 25.2 mmHg MV P1/2t: 50.8 msec Lat Peak E' Regulo PA V2 max LVOT Max Regulo : 79.9 cm/sec : 115.3 cm/sec E/E' lat: 11.0 PA mean PG E/e' average: 9.8 GRETEL(I,D): 2.5 cm PA Accel Time sev ratio: 0.80 : 0.11 sec AI P1/2t : 716.6 msec AI dec slope : 127.7 cm/s2c MV dec time MV P1/2t max regulo Ao V2 mean LV V1 max PG : 0.18 sec : 101.0 cm/sec MVA(P1/2t): 4.3 cm2 Ao V2 VTI: 34.6 cmLV V1 VTI GRETEL(V,D): 2.5 cm2 : 27.8 cm PA V2 mean GRETEL indexed to BSA : 59.7 cm/sec (cm^2/m^2): 1.6 Electronically signed by: Bessie Denise on Reading Physician:12/02/2016 03:03 PM
--- NOTE | 2016-12-02 16:56 | DRSVH ---
PROCEDURE: CT CHEST WITH CONTRAST ([id number]) INDICATIONS: SIADH, suspicion for Small Cell Carcinoma TECHNIQUE: After the administration of intravenous contrast, 5 mm thick sections acquired from the pulmonary api saul to the posterior costophrenic angles. 7 mm thick coronal and sagittal MIP reformats were acquire d. For radiation dose reduction, the following was used: automated exposure control, adjustment of mA and/or kV according to patient size. COMPARISON: None. FINDINGS: Image quality: Excellent. Lungs and pleura: Small bilateral pleural effusions are present. There is mild dependent bilateral lo wer lobe atelectasis versus pneumonia. Benign-appearing linear 12 mm diameter density within the late ral lingula is present. Central and peripheral airways are patent and normal in caliber. Mediastinum: Heart size is normal. No pericardial effusion. No mediastinal or hilar adenopathy by size criteria. Thoracic aorta and central pulmonary arteries are normal in size. Esophagus is mason l in caliber. No hiatal hernia. Bones and chest wall: No suspicious bony lesions. No vertebral body compression fractures. No axil lisa or supraclavicular adenopathy by size criteria. Thyroid gland is within normal limits. Abdomen: Visualized upper abdominal solid organs appear normal. Upper abdominal bowel loops are nor mal in caliber. IMPRESSION: 1. No evidence of malignancy. 2. Bilateral lower lobe atelectasis versus pneumonia with small bilateral pleural effusions. Dictated by: Tenisha Alfaro M.D. on 12/02/2016 at 16:50 Approved by: Tenisha Alfaro M.D. on 12/02/2016 at 16:55
--- NOTE | 2016-12-02 17:49 | DRSVH ---
PROCEDURE: US BILATERAL DUPLEX DOPPLER IMAGING OF THE CAROTIDS ([id number]) INDICATIONS: 71 year-old female with dizziness. TECHNIQUE: Color and pulse Doppler interrogation was performed of both carotid systems, with image documentation and velocity measurements. COMPARISON: None. FINDINGS: Right side: Brachial blood pressure: Unable to be acquired due to intravenous line. Common carotid artery peak systolic velocity: 74 cm/sec. Internal carotid artery peak systolic velocity: 67 cm/sec. Internal carotid artery end diastolic velocity: 20 cm/sec. External carotid artery peak systolic velocity: 93 cm/sec. ICA/CCA peak systolic ratio: 0.92. Rubio scale imaging description: Small atherosclerotic plaque at the internal carotid artery origin. Percent internal carotid artery stenosis: Less than 50%. Vertebral artery: Flow direction is antegrade. Left side: Brachial blood pressure: 128/66 mm Hg. Common carotid artery peak systolic velocity: 59 cm/sec. Internal carotid artery peak systolic velocity: 70 cm/sec. Internal carotid artery end diastolic velocity: 13 cm/sec. External carotid artery peak systolic velocity: 90 cm/sec. ICA/CCA peak systolic ratio: 1.2. Rubio scale imaging description: Small atherosclerotic plaque at the internal carotid artery origin. Percent internal carotid artery stenosis: Less than 50%. Vertebral artery: Flow direction is antegrade. IMPRESSION: No hemodynamically significant lesions of the extracranial internal carotid arteries. Dictated by: Khalif Coburn M.D. on 12/02/2016 at 17:40 Approved by: Khalif Coburn M.D. on 12/02/2016 at 17:42
[2016-12-02] MEDS ORDERED: WATER IV PRN (18:05)
[2016-12-02] MEDS ORDERED: DEXTROSE 50% IV PRN (18:05)
[2016-12-02] MEDS: Hydrocortisone 50 mg/mL 2 mL Inj IVPUSH SCH (18:16)
--- NOTE | 2016-12-02 19:27 | NUR ---
BLOOD SUGAR Patient BS @ 14:[address] Cummings contacted 25mg D50 was given per protocol. rechecked at 15:15 resulted to 108. At 17:30 BS=72 patient ate dinner and will recheck BS every 6 hrs. NOC RN aware of the plan.
--- NOTE | 2016-12-02 20:09 | PCM.CHPMED ---
Subjective Date of Service: Dec 02, 2016 Primary Physician: Admitting Physician: Deepak Pereira MD Primary Care Physician: Lucila Retana ND, LAc Attending Physician: Deepak Pereira MD Chief Complaint: Chief Complaint: Endocrinology consultation: Asked by Dr. Cummings to consult regarding hypoglycemia and hyponatremia. History of Present Illness: Ms. Rodriguez is a 71-year-old generally healthy woman who presents with a vague history of confusion, reduced oral intake, reduced ambulation, and lower extremity paresthesias, subsequently noticed to have hyponatremia, hypoglycemia and metabolic acidosis. She is attended by a naturopathic doctor for most of her problems. At the time of interview she is fatigued and providing limited details. She and her daughter describe lower extremity swelling which is been present for 6-12 months. For approximately one month her daughter describes reduced mental clarity. Recently leg redness has been somewhat worse with redness leading to topical lotion treatments, and apparently oral antibiotics (amox, co-trimox) within the past week. The patient endorses reduced appetite over one week prior to admission. 2 days prior to admission she felt much more weak and had difficulty ambulating. The patient also acknowledges worsening confusion for 2 days prior to admission. She presented to emergency department where diagnoses centered on back pain and lower extremity dermatitis or cellulitis. When asked about co-trimoxazole and Augmentin on her medication list, the patient does not recall taking these. She does endorse that she takes many herbal supplements including several that were not listed at time of admission. The patient is usually responsible for all her ADLs. She lives alone. She is previously performed vigorous outdoor physical activity although somewhat reduced in the past year. With regard to hypoglycemia: She has had no previous syncopal spells. She does not describe clear episodes of neuroglycopenia or hyper-autonomic symptoms. She is not diabetic and does not have access to hypoglycemic medications in her home. With regard to hypoadrenalism: She has no prior history of adrenal problems. She denies episodes of postural hypotension, other than arising slowly in the morning upon awakening. She has not lost weight, instead gained weight in the last 6 months. She has noticed no hyperpigmentation. There is no family history of autoimmune endocrinopathy. Blood glucose was normal in the ED on admission, but ~21 at 5:45 - 7:00 AM, and 54 at 14:45. Subsequently treated with hydrocortisone and dextrose. Review of Systems: 11 Systems were reviewed with significant findings noted above. Incidental note is made of severely disordered sleep pattern with daytime sleepiness. PMH Past Medical History #1 hypothyroidism - on [place] thyroid 90 mg stable dose for a long time #2 chronic leg edema #3 glaucoma # Degenerative joint disease # Osteoporosis Allergies: Coded Allergies: tetracycline (Verified Allergy, Unknown, 11/30/16) Social History Hx Alcohol Use: NoHx Substance Use: NoHx Tobacco Use: No Smoking Status: Never Smoker Living Arrangement: Alone (daughter flying in from [place]) Exam Vital Signs Vital Sign - Last Date Time Temp Pulse Resp B/P Pulse Ox O2 Delivery O2 Flow Rate FiO2 12/02/16 13:00 36.3 63 20 105/53 98 Room Air Intake and Output 12/01/16 12/01/16 12/02/16 Cumulative From/Thru 15:00 23:00 07:00 11/30/16 22:49 - 12/02/16 06:22 Intake Total 1403 ml 1012 ml 2415 ml Output Total 600 ml 200 ml 800 ml Balance 803 ml 812 ml 1615 ml Intake Oral 350 ml 350 ml IV Total 1053 ml 1012 ml 2065 ml Output Urine Total 600 ml 200 ml 800 ml # Voids 1 1 # Bowel Movements 1 1 Generally healthy appearing elderly woman slightly lethargic. HEENT: Oral mucosa is moist and not pigmented Neck: Thyroid is nonpalpable Lungs: Clear breath sounds bilaterally Cardiac: S1-S2, regular Abdomen: Nontender nondistended bowel sounds present Extremities: No hyperpigmentation, venous stasis changes with mild lymphedema of both extremities, symmetric redness without focal warmth or swelling Neuro: Reflexes 1+ upper extremities. Unable control voluntary movements when testing lower extremities. Sensation is intact to light touch. Lab and Diagnostics Labs Random cortisol at 16:18 on 12/01 is 17.6 Urine osmolality is 418 Result Diagram: 12/02/16 0545 12/02/16 1550 X-Rays, CTs and MRIs Chest x-ray - raise concern for focal lesion but chest CT is compatible with bilateral atelectasis without infiltrate or nodule. Assessment & Plan Assessment 71-year-old generally healthy woman presents with weakness and confusion, found to have hyponatremia and hypoglycemia. Reduced mental status seems to be subacute over recent months according to daughter, somewhat accelerated over the past 4 weeks. Weakness to the point of difficulty ambulating seems to be acute for several days prior to admission only. Notable element of history includes polypharmacy with herbal products. # Hypoglycemia - Blood sugars were approximately ~20 between the hours of 05:45 (morning lab draw) and symptoms of acute encephalopathy at approximate a 7 AM. At that time, fingerstick glucoses confirm hypoglycemia. Since this morning, it appears that she is received intravenous glucose as well as glucocorticoid supplement; hence we have no means to determine hypoglycemia is persistent and recurrent. Differential diagnosis for severe hypoglycemia includes: Drug interaction with co-trimoxazole, possibly compounded by other herbs and heparin ; less likely iatrogenic or factitious; less likely insulinoma, hypoadrenalism, autoimmune or paraneoplastic. It is important to note that poor by mouth intake does not explain this level of hypoglycemia. - Check insulin and C-peptide levels on the 12/02 05:45 AM sample, to determine if this is pancreatic mediated - Perform q2hr capillary blood sugar monitoring - I would suggest to discontinue hydrocortisone and dextrose supplementation as soon as possible to see if hypoglycemia is recurrent - if there is recurrent severe hypoglycemia (BG < 50) then obtain concurrent insulin & C-peptide level, while initiating emergent glucose supplement - If hypoglycemia is mild and abates over the next day, then some kind of drug interaction carryover from medication herbs taken prior to admission is the most likely explanation - If there is no recurrence we can consider a limited fasting study prior to discharge # Rule out hypoadrenalism - Hyponatremia, metabolic acidosis, hypoglycemia are all compatible with adrenal insufficiency. There are no symptoms of chronic adrenal insufficiency such as abdominal discomfort, weight loss, postural hypotension, hyperpigmentation. Blood pressure is normal as is potassium. Her metabolic acidosis is mild. There is no hypereosinophilia or hypercalcemia. A randomly obtained afternoon cortisol 17.6 in the setting of low pretest probably is sufficient to rule out the diagnosis of hypoadrenalism. - Follow-up various other cortisol measurements that have been made randomly, as well as Cortrosyn stim test which seems to have been ordered - I do not feel strongly about hydrocortisone therapy, as the patient has not been hypotensive, but okay to continue until other cortisol results are final # SIADH - there is no obvious cause of her hyponatremia with elevated urinary osmolality. She seems to be no suspicious medications, but herbal causes of SIADH are probably not well defined. There is no evidence for the typical neurologic or pulmonary causes. Her thyroid status appears to be normal. 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 - Medical evaluation for primary cause is appropriate - Continue free water restriction and management per nephrology consult # Hypothyroidism - continue supplement Thank you for this very interesting consult. I can be reached for questions at [phone], and will continue to follow. Problems: Pain Evaluation: Pain not Controlled GI Prophylaxis: H2 michelle VTE Prophylaxis: Sub-Q Heparin (Unfractionated) Resuscitation Status: CPR: Attempt Resuscitation Time spent 70 minutes Giig Qureshi MD Dec 02, 2016 20:09
[2016-12-02 20:35] VITALS: BP 107/55; PULSE 66; RESP 20; O2SAT 94
[2016-12-02] MEDS ORDERED: Glucose 40% Oral Gel 15 Gm Tube PO PRN (21:40)
[2016-12-02] MEDS ORDERED: Dextrose 50% Water 50 mL Inj IV PRN (21:40)
[2016-12-03] MEDS: Heparin 5,000 Unit/mL Inj SUBQ SCH (00:36)
[2016-12-03 00:49] VITALS: BP 110/55; PULSE 67; RESP 18; O2SAT 93
[2016-12-03] MEDS: Hydrocortisone 50 mg/mL 2 mL Inj IVPUSH SCH (04:42)
--- NOTE | 2016-12-03 05:47 | NUR ---
Mentation pt able to make needs known but very forgetful and occasionally makes nonsensical statements, denies any pain all shift, BG checked q 4hrs as ordered, Pudding given for BG of 71.
[2016-12-03 07:03] LABS: BASOPHILS % (AUTO) 0 % (0-3); EOSINOPHILS % (AUTO) 0.6 % (0-5); MONOCYTES % (AUTO) 9.1 % (4-12); Mean Corpuscular Hemoglobin 31.9 pg (27.0-35.0); Mean Corpuscular Volume 91.6 fL (81-100); NEUTROPHILS % (AUTO) 72.7 % (40-74); Platelet Count 162 bil/L (150-400)
[2016-12-03 07:13] LABS: C-Peptide 0.9 ng/mL (1.1-4.4)
[2016-12-03 07:23] LABS: Magnesium 1.7 mg/dL (1.6-2.6)
[2016-12-03 08:00] VITALS: BP 138/64; PULSE 63; RESP 14; O2SAT 96
--- NOTE | 2016-12-03 08:14 | PCM.CHPMED ---
Subjective Date of Service: Dec 03, 2016 Primary Physician: Admitting Physician: Deepak Pereira MD Primary Care Physician: Lucila Retana ND, LAc Attending Physician: Deepak Pereira MD Chief Complaint: Chief Complaint: Endocrinology consultation: Subsequent note regarding hypoglycemia and hyponatremia. History of Present Illness: Subjective: No symptoms or acute hypoglycemia noted overnight. Sleeping patterns chronically disordered. She reports low appetite. PMH Bedside Blood Glucose: 71 Allergies: Coded Allergies: tetracycline (Verified Allergy, Unknown, 11/30/16) Social History Hx Alcohol Use: NoHx Substance Use: NoHx Tobacco Use: No Smoking Status: Never Smoker Living Arrangement: Alone (daughter flying in from [place]) Exam Vital Signs Vital Sign - Last Date Time Temp Pulse Resp B/P Pulse Ox O2 Delivery O2 Flow Rate FiO2 12/03/16 00:49 36.3 67 18 110/55 93 Room Air Intake and Output 12/02/16 12/02/16 12/03/16 Cumulative From/Thru 15:00 23:00 07:00 11/30/16 22:49 - 12/03/16 05:20 Intake Total 130 ml 250 ml 2795 ml Output Total 1300 ml 2100 ml Balance 130 ml -1050 ml 695 ml Intake Oral 130 ml 200 ml 680 ml IV Total 50 ml 2115 ml Output Urine Total 1300 ml 2100 ml # Voids 3 2 6 # Bowel Movements 1 1 3 Exam today: Alert and mostly oriented, calm and interactive HEENT: Oral mucosa and conjunctivae are moist Abdomen: Nontender no nausea and vomiting Extremities no change in her baseline edema Neurological: Mental status normal, motor strength symmetric and normal bilaterally Lab and Diagnostics Result Diagram: 12/03/16 0615 12/03/16 0615 Assessment & Plan Assessment She has had low normal blood glucose spontaneously since her episode of acute hypoglycemia yesterday morning. I recommend that we proceed towards definitive evaluation of her hypoglycemia. To do so I would like to eliminate the confounding factor of glucose treatment, hydrocortisone therapy, and a minor issue of heparin which has been reported to cause hypoglycemia. While her high-dose steroids are wearing off today I believe she can have a normal diet. Starting tonight I would like to initiate a supervised fast. With appropriate blood tests for insulinoma rule out. Plan: #1 discontinue hydrocortisone, heparin #2 capillary blood glucose every 2 hours while awake #3 regular diet today. #4 no glucose interventions for blood glucose greater than 55 MG/DL #5 insulin, C-peptide and serum glucose stat for blood glucose less than 55 mg/ dl #6 glucagon with serial testing for glucose and beta hydroxybutyrate 1 blood glucose is less than 55 MG/DL #7 emergency glucose resuscitation with D50 only for blood glucose less than 50 MG/DL with symptoms #8 if no spontaneous severe hypoglycemia today, we will initiate fasting tomorrow #9 contact me at [phone] if she develops hypoglycemia today Problems: Pain Evaluation: Pain not Controlled GI Prophylaxis: H2 michelle VTE Prophylaxis: Sub-Q Heparin (Unfractionated) Resuscitation Status: CPR: Attempt Resuscitation Time spent 25 minutes Gigi Qureshi MD Dec 03, 2016 08:14
[2016-12-03] MEDS ORDERED: Glucagon 1 mg/mL Inj IV PRN (08:20)
--- NOTE | 2016-12-03 08:47 | PCM.PNNEPH ---
Subjective Date of Service Dec 03, 2016 Exam Vital Signs Vital Sign - Last Date Time Temp Pulse Resp B/P Pulse Ox O2 Delivery O2 Flow Rate FiO2 12/03/16 08:00 36.3 63 14 138/64 96 12/03/16 00:49 Room Air Intake and Output 12/02/16 12/02/16 12/03/16 Cumulative From/Thru 15:00 23:00 07:00 11/30/16 22:49 - 12/03/16 05:20 Intake Total 130 ml 250 ml 2795 ml Output Total 1300 ml 2100 ml Balance 130 ml -1050 ml 695 ml Intake Oral 130 ml 200 ml 680 ml IV Total 50 ml 2115 ml Output Urine Total 1300 ml 2100 ml # Voids 3 2 6 # Bowel Movements 1 1 3 Exam General: Alert, Oriented X3, Cooperative, No acute Distress elderly woman Eyes: PERRLA, Scleral Anicteric Mouth: Mouth Normal, Mucous Membranes Moist/[place] Neck: Supple, no Thyromegaly, trachea central. Chest & Lungs: Clear to auscultation & percussion, No adventitious breath sounds, no crackles, no wheeze Cardiovascular: Normal S1, Normal S2, No Rubs/Gallops, Regular Rate/Rhythm, soft systolic murmur (No JVD, no peripheral edema) Pulses: Radial (present and equal), Dorsalis Pedi (present and equal) Abdomen: Soft, Non-tender, Non-distended, Normoactive bowel tones. Musculoskeletal: Unremarkable. Normal range of motion, no swollen or erythematous joints Extremities: No edema, no cyanosis, no clubbing. Skin: No rashes. Warm and dry, no erythematous areas +Venous stasis changes to both legs Neurological: Grossly neurologically intact, has generalized weakness, Normal Speech, Sensation Intact Lymphatic: Lymph nodes Cervical and Axillary not palpable. Lab and Diagnostics Result Diagram: 12/03/1615 12/03/16614 X-Rays, CTs and MRIs CT CHEST WITH CONTRAST IMPRESSION: 1. No evidence of malignancy. 2. Bilateral lower lobe atelectasis versus pneumonia with small bilateral pleural effusions. Dictated by: Tenisha Alfaro M.D. on 12/02/2016 at 16:50 Approved by: Tenisha Alfaro M.D. on 12/02/2016 at 16:55 CT LUMBAR SPINE WITHOUT CONTRAST ([id number]) IMPRESSION: 1. Multilevel degenerative changes. 2. Prominent spinal stenosis , most notable at L4-5, secondary to disc bulge and facet arthropathy. 3. Multilevel foraminal narrowing, most notable at L2-3, L4-5, primarly secondary to facet arthropathy. 4. Multiple nonobstructing renal calcifications, right greater than left. The hyperdense focus could also represent a hyperdense cyst, given the less prominent appearance of hyperdensity. Dictated by: Yissel Palacio M.D. on 12/01/2016 at 9:39 Approved by: Yissel Palacio M.D. on 12/01/2016 at 9:55 CT BRAIN WITHOUT CONTRAST ([id number]) IMPRESSION: No acute intracranial disease process. Dictated by: Teena Wright MD, PhD on 12/02/2016 at 8:20 Approved by: Teena Wright MD, PhD on 12/02/2016 at 8:23 Cardiac Echo Impressions Echocardiogram Report Interpretation Summary Normal left ventricle size with ejection fraction 60-65%. Severely dilated left atrium. Moderately dilated right atrium. Mild aortic valve sclerosis. Mild to moderate aortic regurgitation. Mild mitral annular calcification. Mild mitral regurgitation. Mild tricuspid regurgitation. The right ventricular systolic pressure is estimated at 40 mmHg assuming a right atrial pressure of 15 mm Hg. Comparison is made with the echocardiogram of 01/08/2015, there has been no significant change. Electronically signed by: Bessie Denise on Reading Physician:2016 03:03 PM Additional Diagnostics US BILATERAL DUPLEX DOPPLER IMAGING OF THE CAROTIDS ([id number]) IMPRESSION: No hemodynamically significant lesions of the extracranial internal carotid arteries. Dictated by: Khalif Coburn M.D. on 12/02/2016 at 17:40 Approved by: Khalif Coburn M.D. on 12/02/2016 at 17:42 US VENOUS LEG DUPLEX UNILATERAL, RIGHT IMPRESSION: No evidence of deep vein thrombosis involving the right lower extremity. Dictated by: Teena Wright MD, PhD on 11/27/2016 at 21:43 Approved by: Teena Wright MD, PhD on 11/27/2016 at 21:43 Miki Rojas DO Dec 03, 2016 08:47 1. Syndrome of inappropriate secretion of antidiuretic hormone secondary to possible lung mass along with herbal supplements, normal saline during this admission, and Toradol. 2. Euvolemic hyponatremia secondary to syndrome of inappropriate secretion of antidiuretic hormone. 3. Metabolic acidosis with hypoglycemia. I am very concerned about the coexistence of adrenal insufficiency in this patient. 4. Leukopenia. 5. Lung mass. RECOMMENDATION: We need to immediately stop both the Toradol and the normal saline, and the patient needs to be on an 800 mL fluid restriction. I would also like to check an KRYSTIN, serum protein electrophoresis, uric acid, rheumatoid factor, C4, C3, sed rate, and I would have like to obtain an echocardiogram. In addition, I am going to order an emergent cosyntropin challenge, and we will be getting three cortisol specimens following this. Once this is obtained, I am going to give her hydrocortisone 100 mg. We also need to follow her labs very closely. I would strongly urge further recommendations on her pulmonary nodule, as this may be also part of her clinical picture. Once again, I would like to thank you for allowing me to participate in the care of this rather interesting and unfortunate patient. I will be following her closely with you. Miki Rojas DO Dec 03, 2016 08:47
[2016-12-03] MEDS: Amoxicillin-Clav 875-125 mg Tablet PO SCH ×2 (09:20→20:22)
[2016-12-03] MEDS: Famotidine Inj 20 MG in IV Premix 1 EACH IV SCH ×2 (09:20→20:22)
--- NOTE | 2016-12-03 11:27 | PCM.PNNEPH ---
Subjective Date of Service Dec 03, 2016 Subjective Patient's bowel status is better today and she is able to give more specific information. Her daughter is going to bring in a list of slightly global supplements that she is taking. CT of her chest was negative for any type of pulmonary pathology. She states that her appetite is stable but denies any further nausea, vomiting, or diarrhea. The cosyntropin challenge was ordered yesterday was mixed up by the lab and values were meaningless. Insulin level and C-peptide were both normal. Rheumatoid factor, KRYSTIN, C3 and C4 within normal limits. Her sodium was 135 this morning, potassium 4.5, chloride of 99, bicarbonate of 24, BUN and creatinine were 8 and 0.67 respectively. Her blood pressures ranging in the 100-110 range. Intake and output for the last 24-hour showed 1140 nightly and 200 out yesterday but 1300 out already in the first 8 hours today. Exam Vital Signs Vital Sign - Last Date Time Temp Pulse Resp B/P Pulse Ox O2 Delivery O2 Flow Rate FiO2 12/03/16 08:00 36.3 63 14 138/64 96 12/03/16 00:49 Room Air Intake and Output 12/02/16 12/02/16 12/03/16 Cumulative From/Thru 15:00 23:00 07:00 11/30/16 22:49 - 12/03/16 05:20 Intake Total 130 ml 250 ml 2795 ml Output Total 1300 ml 2100 ml Balance 130 ml -1050 ml 695 ml Intake Oral 130 ml 200 ml 680 ml IV Total 50 ml 2115 ml Output Urine Total 1300 ml 2100 ml # Voids 3 2 6 # Bowel Movements 1 1 3 Exam HEENT examination is remarkable for pallor sclera. Neck is supple without adenopathy thyromegaly or jugular venous distention. Lungs are clear to auscultation. Heart is regular and rhythmical with a soft systolic murmur. Abdomen is soft without any tenderness or rebound guarding masses or hepatosplenomegaly. Extremities show any evidence of any clubbing, cyanosis, or edema. Skin turgor is good and there is no evidence of any rashes. Lab and Diagnostics Result Diagram: 12/03/1615 12/03/16614 X-Rays, CTs and MRIs US VENOUS LEG DUPLEX UNILATERAL, RIGHT IMPRESSION: No evidence of deep vein thrombosis involving the right lower extremity. Dictated by: Teena Wright MD, PhD on 11/27/2016 at 21:43 Approved by: Teena Wright MD, PhD on 11/27/2016 at 21:43 CT C-Spine Interpretation CONCLUSION: No evidence of fracture or subluxation. Degenerative changes and disc bulge with central canal stenosis at L4-5. Osteopenia. Right nephrolithiasis. Other findings as above. This report was transmitted to the emergency room at 12/01/2016 - 12:56:16 AM PDT. Study type: CT no contrast Interpretation / Wet Read by: Interpret - Radiologist Echocardiogram Report Reason For Study: Dizziness Interpretation Summary Normal left ventricle size with ejection fraction 60-65%. Severely dilated left atrium. Moderately dilated right atrium. Mild aortic valve sclerosis. Mild to moderate aortic regurgitation. Mild mitral annular calcification. Mild mitral regurgitation. Mild tricuspid regurgitation. The right ventricular systolic pressure is estimated at 40 mmHg assuming a right atrial pressure of 15 mm Hg. Comparison is made with the echocardiogram of 01/08/2015, there has been no significant change. Electronically signed by: Bessie Denise on Reading Physician:12/02/2016 03:03 PM Plan Impression Impression #1 euvolemic hyponatremia secondary to syndrome of inappropriate ADH secretion and #2 recurrent hypoglycemia #3 leukopenia Recommendations #1 I am concerned that there may be an occult process namely a malignancy underlying some of the patient's problems. With her insulin and C- peptide levels were low I would be concerned about it, no adenopathy or possible MEN. I would like to go ahead and order a glucagon level along with a chromogranin A and CA 27.29. I would also recommend doing a CT of the abdomen and pelvis to rule out a pancreatic mass. I will also stop the hydrocortisone. Ja Salmeron DO Dec 03, 2016 11:27
[2016-12-03 14:13] LABS: RNP Antibodies 1.2 AI (0.0-0.9)
[2016-12-03 15:51] VITALS: BP 120/66; PULSE 62; RESP 14; O2SAT 95
--- NOTE | 2016-12-03 16:08 | NUR ---
Mentation/activity/BG Pts mentation very clear today. AOX3. Pt. states she feels stronger than yesterday. Walked with PT around the unit and is now sitting in a chair. Blood sugars have remained stable so far today. Checked every 2 hours. Ranging from 90-140. Monitoring for signs of hypoglycemia. Daughter in the room, and educated on signs and symptoms.
[2016-12-03] MEDS ORDERED: BIMA2.5D6 OP (16:14)
--- NOTE | 2016-12-03 16:29 | NUR ---
Social Work- Continued D/C Planning Data: EMR reviewed. Pt is on day 2 of hospitalization for spinal stenosis, loss of ambulation ability per H&P. Most recent PT evaluation is recommending SNF if patient were to discharge today, however pt may progress and discharge home with HH PT. SW will continue to follow this closely. SW spoke with pt, friend, and daughter Elida ([phone]) at bedside regarding pt's discharge needs, long-term care planning, and advance directives. Pt resides in a large home in [facility], though both pt and her daughter are hopeful to transition her out of this home an into a smaller home or independent/assisted living facility. SW encouraged Elida and pt to consider these options as soon as possible, explained transitional care facilities and agreed to provide some resources to the family. Elida also has concerns about pt losing insurance, as pt's insurance is through her and he is at risk of losing his job (they are but not legally ). SW to provide resources, including [facility]. Pt and daughter also spoke with SW regarding DPOA/Advance Directives. SW explained DPOA/AD and ensured pt has paperwork to complete this. SW spoke with pt and daughter regarding SNF recommendation, they are reviewing the list and Medicare.gov reviews and are going to provide SW with choices tomorrow. SW will continue to follow closely. Assessment: Pt who may benefit from SNF vs. Home with HH. Plan: CUT OFF SAW SET UP OPERATOR to create resource packet for family with information about computer terminal operator care planning, assisted living facilities, advance directives, insurance resources. CUT OFF SAW SET UP OPERATOR will follow up with pt regarding SNF choice and make referrals. CUT OFF SAW SET UP OPERATOR will continue to follow. JESSIE Malin
--- NOTE | 2016-12-03 16:36 | PCM.PNMED ---
Subjective Date of Service Dec 03, 2016 Subjective Feels better, able to amb in [place] although was "confused" (her word, she's not sure it was lightheadedness) initially when stood. Says swelling in legs much improved. Appetite better. Exam Vital Signs Vital Sign - Last Date Time Temp Pulse Resp B/P Pulse Ox O2 Delivery O2 Flow Rate FiO2 12/03/16 15:51 36.3 62 14 120/66 95 Room Air Intake and Output 12/02/16 12/02/16 12/03/16 Cumulative From/Thru 15:00 23:00 07:00 11/30/16 22:49 - 12/03/16 05:20 Intake Total 130 ml 250 ml 2795 ml Output Total 1300 ml 2100 ml Balance 130 ml -1050 ml 695 ml Intake Oral 130 ml 200 ml 680 ml IV Total 50 ml 2115 ml Output Urine Total 1300 ml 2100 ml # Voids 3 2 6 # Bowel Movements 1 1 3 Exam General: Alert and oriented, no acute distress Heart: Regular with occl irreg beat Lungs: Clear Abdomen: Soft, non-tender Extremities: Legs with Minimal pedal edema, mild erythema, some fine wrinkling of skin IVs and Medications Medications Reviewed: Medications were reviewed in detail Lab and Diagnostics Result Diagram: 12/03/1661412/03/16614 X-Rays, CTs and MRIs US VENOUS LEG DUPLEX UNILATERAL, RIGHT IMPRESSION: No evidence of deep vein thrombosis involving the right lower extremity. Dictated by: Teena Wright MD, PhD on 11/27/2016 at 21:43 Approved by: Teena Wright MD, PhD on 11/27/2016 at 21:43 CT C-Spine Interpretation CONCLUSION: No evidence of fracture or subluxation. Degenerative changes and disc bulge with central canal stenosis at L4-5. Osteopenia. Right nephrolithiasis. Other findings as above. This report was transmitted to the emergency room at 12/01/2016 - 12:56:16 AM PDT. Study type: CT no contrast Interpretation / Wet Read by: Interpret - Radiologist Echocardiogram Report Reason For Study: Dizziness Interpretation Summary Normal left ventricle size with ejection fraction 60-65%. Severely dilated left atrium. Moderately dilated right atrium. Mild aortic valve sclerosis. Mild to moderate aortic regurgitation. Mild mitral annular calcification. Mild mitral regurgitation. Mild tricuspid regurgitation. The right ventricular systolic pressure is estimated at 40 mmHg assuming a right atrial pressure of 15 mm Hg. Comparison is made with the echocardiogram of 01/08/2015, there has been no significant change. Electronically signed by: Bessie Denise on Reading Physician:12/02/2016 03:03 PM Assessment & Plan Kathryn Rodriguez is a 71 year old female with Scoliosis and osteoporosis presenting to [facility] emergency department complaining of worsening back pain 1 Acute on Chronic back pain due to Spinal L4-L5 stenosis. Present on admission Chronic issues now causing some disability for the patient. Patient lives alone and independently - Physical therapy working with patient - Orthopedic consultation to consider surgical options - no note in chart - Oxycodone PRN pain - Social work consultation -- Added morphine IV pain medication, gabapentin, ketorolac IV -- We will consider Robaxin 2 Right leg cellulitis. Present on admission. Improving and resolving Treated with Bactrim and Augmentin. No evidence of Deep vein thrombosis. No Urinary tract infections - continue Augmentin daily. It is unclear when her last dose would be, per H&P "only a few tabs left" 3 Hyponatremia. Present on admission. Normal today. [place] due to SIADH -- Initially Suspected due to hypovolemia and dehydration. TSH 4.0 -- had urine osmolality, serum osmolality, urine sodium, random cortisol felt c/ w SIADH -- Echocardiogram 12/02: Normal left ventricle size with ejection fraction 60-65% . -- initially IVF with NS which were discontinued 12/02 a.m., fluid restriction as ordered. Consult to Dr. Salmeron. He will see the patient, the patient the recommendations -- Consulted endocrinology as she is also severely hypoglycemic on the morning of 12/02, Dr. Salmeron expressed concern for adrenal insufficiency. -- CT chest with scan is ordered per Dr. Salmeron's recommendations. No nodule/ mass seen Nephrology consult 12/02: IMPRESSION: 1. Syndrome of inappropriate secretion of antidiuretic hormone secondary to possible lung mass along with herbal supplements, normal saline during this admission, and Toradol. 2. Euvolemic hyponatremia secondary to syndrome of inappropriate secretion of antidiuretic hormone. 3. Metabolic acidosis with hypoglycemia. I am very concerned about the coexistence of adrenal insufficiency in this patient. 4. Leukopenia. 5. Lung mass. RECOMMENDATION: We need to immediately stop both the Toradol and the normal saline, and the patient needs to be on an 800 mL fluid restriction. I would also like to check an KRYSTIN, serum protein electrophoresis, uric acid, rheumatoid factor, C4, C3, sed rate, and I would have like to obtain an echocardiogram. In addition, I am going to order an emergent cosyntropin challenge, and we will be getting three cortisol specimens following this. Once this is obtained, I am going to give her hydrocortisone 100 mg. We also need to follow her labs very closely. I would strongly urge further recommendations on her pulmonary nodule, as this may be also part of her clinical picture. NEPHROLOGY FOLLOW UP 12/03: Impression #1 euvolemic hyponatremia secondary to syndrome of inappropriate ADH secretion and #2 recurrent hypoglycemia #3 leukopenia Recommendations #1 I am concerned that there may be an occult process namely a malignancy underlying some of the patient's problems. With her insulin and C- peptide levels were low I would be concerned about it, no adenopathy or possible MEN. I would like to go ahead and order a glucagon level along with a chromogranin A and CA 27.29. I would also recommend doing a CT of the abdomen and pelvis to rule out a pancreatic mass.(I've ordered) I will also stop the hydrocortisone.(done) 4. Hypoglycemia -- Blood glucose was 21 on the a.m. of 12/02, protocol was initiated with D5 -- Patient was thought to be having a stroke, code stroke was called. -- Patient eventually recovered after receiving the D5 amp, completely back to back normal -- CT of head was ordered, negative for acute findings. -- EKG was ordered and did not show any acute findings or changes -- There is certainly a concern for adrenal insufficiency per Dr. Salmeron. -- Due to her glucose checks are ordered -- Code stroke was called 12/02 morning it was not clear immediately what was wrong with patient. Serum ammonia levels, acetone levels, lactic acid are all within normal -- Dr Qureshi, Endocrinology consulted 12/02: Assessment 71-year-old generally healthy woman presents with weakness and confusion, found to have hyponatremia and hypoglycemia. Reduced mental status seems to be subacute over recent months according to daughter, somewhat accelerated over the past 4 weeks. Weakness to the point of difficulty ambulating seems to be acute for several days prior to admission only. Notable element of history includes polypharmacy with herbal products. # Hypoglycemia - Blood sugars were approximately ~20 between the hours of 05:45 (morning lab draw) and symptoms of acute encephalopathy at approximate a 7 AM. At that time, fingerstick glucoses confirm hypoglycemia. Since this morning, it appears that she is received intravenous glucose as well as glucocorticoid supplement; hence we have no means to determine hypoglycemia is persistent and recurrent. Differential diagnosis for severe hypoglycemia includes: Drug interaction with co-trimoxazole, possibly compounded by other herbs and heparin ; less likely iatrogenic or factitious; less likely insulinoma, hypoadrenalism, autoimmune or paraneoplastic. It is important to note that poor by mouth intake does not explain this level of hypoglycemia. - Check insulin and C-peptide levels on the 12/02 05:45 AM sample, to determine if this is pancreatic mediated - Perform q2hr capillary blood sugar monitoring - I would suggest to discontinue hydrocortisone and dextrose supplementation as soon as possible to see if hypoglycemia is recurrent - if there is recurrent severe hypoglycemia (BG < 50) then obtain concurrent insulin & C-peptide level, while initiating emergent glucose supplement - If hypoglycemia is mild and abates over the next day, then some kind of drug interaction carryover from medication herbs taken prior to admission is the most likely explanation - If there is no recurrence we can consider a limited fasting study prior to discharge # Rule out hypoadrenalism - Hyponatremia, metabolic acidosis, hypoglycemia are all compatible with adrenal insufficiency. There are no symptoms of chronic adrenal insufficiency such as abdominal discomfort, weight loss, postural hypotension, hyperpigmentation. Blood pressure is normal as is potassium. Her metabolic acidosis is mild. There is no hypereosinophilia or hypercalcemia. A randomly obtained afternoon cortisol 17.6 in the setting of low pretest probably is sufficient to rule out the diagnosis of hypoadrenalism. - Follow-up various other cortisol measurements that have been made randomly, as well as Cortrosyn stim test which seems to have been ordered - I do not feel strongly about hydrocortisone therapy, as the patient has not been hypotensive, but okay to continue until other cortisol results are final # SIADH - there is no obvious cause of her hyponatremia with elevated urinary osmolality. She seems to be no suspicious medications, but herbal causes of SIADH are probably not well defined. There is no evidence for the typical neurologic or pulmonary causes. Her thyroid status appears to be normal. In light of her progressive albeit vague encephalopathy of the past month she may have a FUEL AGENT or malignant process underlying this. - Medical evaluation for primary cause is appropriate - Continue free water restriction and management per nephrology consult # Hypothyroidism - continue supplement FOLLOW UP 12/03: Assessment She has had low normal blood glucose spontaneously since her episode of acute hypoglycemia yesterday morning. I recommend that we proceed towards definitive evaluation of her hypoglycemia. To do so I would like to eliminate the confounding factor of glucose treatment, hydrocortisone therapy, and a minor issue of heparin which has been reported to cause hypoglycemia. While her high-dose steroids are wearing off today I believe she can have a normal diet. Starting tonight I would like to initiate a supervised fast. With appropriate blood tests for insulinoma rule out. Plan: #1 discontinue hydrocortisone, heparin #2 capillary blood glucose every 2 hours while awake #3 regular diet today. #4 no glucose interventions for blood glucose greater than 55 MG/DL #5 insulin, C-peptide and serum glucose stat for blood glucose less than 55 mg/ dl #6 glucagon with serial testing for glucose and beta hydroxybutyrate 1 blood glucose is less than 55 MG/DL #7 emergency glucose resuscitation with D50 only for blood glucose less than 50 MG/DL with symptoms #8 if no spontaneous severe hypoglycemia today, we will initiate fasting tomorrow #9 contact me at [phone] if she develops hypoglycemia today 5 Mild elevated transaminase. Present on admission - Hepatitis panel ordered including Hepatitic C: Negative 6. Hypothyroidism - checking TSH: WNL -- We will continue home meds once that reviewed by the admission nurse - Acetaminophen as needed for mild pain/fever/headache - Bowel regimen as needed - Antiemetic as needed Patient is admitted under observation status with expected length of stay less than 2 midnights due to severity of presenting symptoms, risk of adverse event, and complexity of treatment plan: Later changed to inpt status. Disposition not yet determined but hopefully home with HH PT in 1-2 days . GI Prophylaxis: H2 michelle VTE Prophylaxis: Sub-Q Heparin (Unfractionated) Resuscitation Status: CPR: Attempt Resuscitation Melissa Brewer MD Dec 03, 2016 16:36
--- NOTE | 2016-12-03 19:36 | NUR ---
Psych tendencies Daughter talked to me today about how she is concerned with her mothers behavior lately. She says she has OCD tendencies and that it takes her hours to do things like make meals, eat meals and shower. 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 She apparently gets anxious and frustrated if things aren't done a particular way. Daughter says this has been going on for several years, but recently has been getting worse. I told the daughter that we would inform the day MDs and possibly get a psych consult. Otherwise, I encouraged her to get outpatient treatment from a mental health professional.
[2016-12-03 20:00] VITALS: BP 106/58; PULSE 66; RESP 18; O2SAT 95
[2016-12-04 00:43] VITALS: BP 114/63; PULSE 68; RESP 18; O2SAT 94
[2016-12-04 04:48] VITALS: BP 121/61; PULSE 66; RESP 16; O2SAT 96
--- NOTE | 2016-12-04 07:18 | NUR ---
Confusion/Blood Sugar Pt awoke at 0320 and thought she heard her daughter was outside her room. Then needed to be reoriented as she forgot where she was, and then believed this was a different hospital further away. we drove so far Im not confused, Im disturbed , because of all the cars coming here and all the people that were there. Continued to gently reassure patient of where she was, who I was, and when her daughter would be joining her in the morning. She calmed after 10 minutes of discussing and settled back into bed. Pt denies pain and is able to express needs. Blood sugar slowly declined throughout night to 58 at 0600. Night Physician notified and is aware. Was unable to clarify recommendations for pt. This nurse decided to give OJ, immediately after labdraw. r/c of blood sugar 30 min later was 78. Pt asymptomatic throughout. Day shift informed to check by 0800 and to discuss with day shift physician.
[2016-12-04] MEDS: Amoxicillin-Clav 875-125 mg Tablet PO SCH ×2 (08:15→20:19)
[2016-12-04] MEDS: Famotidine Inj 20 MG in IV Premix 1 EACH IV SCH ×2 (08:15→20:19)
--- NOTE | 2016-12-04 08:16 | PCM.CHPMED ---
Subjective Date of Service: Dec 04, 2016 Primary Physician: Admitting Physician: Deepak Pereira MD Primary Care Physician: Lucila Retana ND, LAc Attending Physician: Deepak Pereira MD Chief Complaint: Chief Complaint: Endocrinology consultation: Subsequent note regarding hypoglycemia and hyponatremia. History of Present Illness: Subjective: No symptoms or acute hypoglycemia noted overnight. Stephen blood sugar approximately 70. She reports sleeping well last night. Sleeping patterns chronically disordered. PMH Bedside Blood Glucose: 78 Allergies: Coded Allergies: tetracycline (Verified Allergy, Unknown, 11/30/16) Social History Hx Alcohol Use: NoHx Substance Use: NoHx Tobacco Use: No Smoking Status: Never Smoker Living Arrangement: Alone (daughter flying in from [place]) Exam Vital Signs Vital Sign - Last Date Time Temp Pulse Resp B/P Pulse Ox O2 Delivery O2 Flow Rate FiO2 12/04/16 04:48 36.4 66 16 121/61 96 Room Air Intake and Output 12/03/16 12/03/16 12/04/16 Cumulative From/Thru 15:00 23:00 07:00 11/30/16 22:49 - 12/03/16 20:10 Intake Total 420 ml 3215 ml Output Total 850 ml 2950 ml Balance -430 ml 265 ml Intake Oral 400 ml 1080 ml IV Total 20 ml 2135 ml Output Urine Total 850 ml 2950 ml # Voids 2 8 # Bowel Movements 1 4 Additional Information: General: Elderly woman, alert and oriented, no acute distress HEENT: oral mucosa moist Chest: clear to auscultation Cardiac: S1S2, II/ systolic murmur at LUSB Abdomen: BS normal, non-tender Extremities: Reduced 1+ edema with stasis dermatitis Neuro: A&O, cranial nerves symmetric, motor strength diffusely mildly weak Lab and Diagnostics Result Diagram: 12/03/16 0615 12/04/16 0620 Assessment & Plan Assessment Starting today I would like to initiate a supervised fast. I have changed her diet order to nothing by mouth, noncaloric fluids and meds allowable. I have instructed the nurse not to respond to blood sugars until less than 55 mg/dl. Appropriate blood tests for insulinoma rule out. #1 capillary blood glucose every 2 hours while awake, q 1hr if <70 #2 NPO no calorie diet today, some fluids PO acceptable #3 no glucose interventions for blood glucose greater than 55 MG/DL #4 insulin, C-peptide, pro-insulin and serum glucose (BMP) stat when blood glucose less than 55 mg/dl is documented #5 if blood glucose is less than 55 MG/DL then give glucagon IV with q10 min x 3 serial testing for glucose and beta hydroxybutyrate #6 emergency glucose resuscitation with D50 only for blood glucose less than 50 MG/DL with symptoms 30 min after glucagon #7contact mi at [phone] if she develops hypoglycemia < 60 today Problems: Pain Evaluation: Pain not Controlled GI Prophylaxis: H2 michelle VTE Prophylaxis: Sub-Q Heparin (Unfractionated) Resuscitation Status: CPR: Attempt Resuscitation Time spent 30 min Gigi Qureshi MD Dec 04, 2016 08:16
[2016-12-04 08:42] VITALS: BP 102/59; PULSE 65; RESP 15; O2SAT 93
--- NOTE | 2016-12-04 09:09 | DRSVH ---
PROCEDURE: CT ABDOMEN W&WO CONTRAST, PELVIS WITH CONTRAST INDICATIONS: hypoglycemia and hyponatremia, r/o pancreatic mass TECHNIQUE: After the administration of oral contrast, 5 mm thick sections acquired from the diaphrag ms to the iliac crests. After the administration of intravenous contrast, 5 mm thick sections acquir ed from the diaphragms to the symphysis. 5 mm thick coronal and sagittal reformats were acquired. F or radiation dose reduction, the following was used: automated exposure control, adjustment of mA an d/or kV according to patient size. COMPARISON: None. FINDINGS: Image quality: Excellent. ABDOMEN: Lung bases: Small bilateral pleural fluid collections are noted. Compressive atelectasis noted adjace nt to the bilateral pleural fluid collections. Heart size is normal. Solid organs: Liver and spleen demonstrate normal size. Numerous hepatic cysts are noted. There is a 1.5 x 1.9 by 1.3 cm lesion in the posterior-superior subsegment of the right lobe liver which enhanc es in the arterial phase and is isodense on the venous phase. Lesion likely represents a hepatic radha ngioma versus less likely hypervascular neoplastic process. Gallbladder is contracted. Gallbladder co ntains a small gallstone. Biliary system is non-dilated. Pancreas enhances normally. No pancreatic m asses identified. Pancreatic duct has normal caliber. No adrenal nodules. Iodinated contrast material is noted in the genitourinary collecting systems and the noncontrast phase of the study. Genitourina ry collecting system the contrast likely related to recent CT scan of the chest. Both kidneys are nor mal in size. Small nonobstructing bilateral renal stones are noted which range in size from 2 -4 mm. Bowel and peritoneum: Stomach, small and large bowel loops are normal in caliber and wall thickness. No free air. Small amount of scattered free fluid in the abdomen or pelvis. Nodes and vessels: No retroperitoneal or mesenteric adenopathy by size criteria. Aorta and inferior vena are normal in caliber. Miscellaneous: No ventral hernias. PELVIS: Genitourinary: Bladder wall thickness is normal. There is a 3.8 x 3.2 cm heterogeneously enhancing, partially calcified left adnexal region mass. Miscellaneous: No inguinal hernias. Prominent bilateral inguinal lymph nodes are noted which could b e reactive or neoplastic. Bones: No suspicious bony lesions. No vertebral body compression fractures. Spine degenerative disc disease and facet arthropathy are noted. IMPRESSION: 1. No pancreatic mass identified. 2. Small arterial phase enhancing hepatic lesion with imaging characteristics most suggestive of a he patic hemangioma, however hypervascular neoplastic processes including solitary metastatic lesion cou ld produce a similar appearance. Recommend abdominal ultrasound in 3 months to confirm stability. 3. 3.8 x 3.2 cm left adnexal region mass. Ovarian carcinoma cannot be excluded. Recommend pelvic ultr asound for further evaluation. 3. Small bilateral pleural effusions. 4. Atherosclerosis. 5. Small amount of free intraperitoneal fluid. 6. Cholelithiasis. 7. Nonobstructing bilateral renal stones. Dictated by: Teena Wright MD, PhD on 12/04/2016 at 8:42 Approved by: Teena Wright MD, PhD on 12/04/2016 at 9:08
--- NOTE | 2016-12-04 13:44 | PCM.PNNEPH ---
Subjective Date of Service Dec 04, 2016 Subjective Patient's serum sodium is back to normal. Her blood pressure is 120 range. Intake and output last 24-hour shows 670 N and 2150 out. He was positive however no titer was given. Subtests showed a positive CAT AND DOG BATHER but negative anti- double-stranded DNA. I do not see where his stones were assessed. Patient states she continues to improve and feels much more normal and less confused. She denies any chest pain, shortness of breath, Exam Vital Signs Vital Sign - Last Date Time Temp Pulse Resp B/P Pulse Ox O2 Delivery O2 Flow Rate FiO2 12/04/16 11:43 Room Air 12/04/16 08:42 36.4 65 15 102/59 93 Intake and Output 12/03/16 12/03/16 12/04/16 Cumulative From/Thru 15:00 23:00 07:00 11/30/16 22:49 - 12/03/16 20:10 Intake Total 420 ml 3215 ml Output Total 850 ml 2950 ml Balance -430 ml 265 ml Intake Oral 400 ml 1080 ml IV Total 20 ml 2135 ml Output Urine Total 850 ml 2950 ml # Voids 2 8 # Bowel Movements 1 4 Exam Neck is supple without adenopathy, thyromegaly, or jugular venous distention. Lungs are clear to auscultation. Heart was regular rhythm with a soft systolic murmur. Abdomen is soft without any tenderness rebound guarding masses or hepatosplenomegaly. Extremities show no evidence of any clubbing cyanosis or edema Lab and Diagnostics Result Diagram: 12/03/16 0615 12/04/16 0620 X-Rays, CTs and MRIs US VENOUS LEG DUPLEX UNILATERAL, RIGHT IMPRESSION: No evidence of deep vein thrombosis involving the right lower extremity. Dictated by: Teena Wright MD, PhD on 11/27/2016 at 21:43 Approved by: Teena Wright MD, PhD on 11/27/2016 at 21:43 CT C-Spine Interpretation CONCLUSION: No evidence of fracture or subluxation. Degenerative changes and disc bulge with central canal stenosis at L4-5. Osteopenia. Right nephrolithiasis. Other findings as above. This report was transmitted to the emergency room at 12/01/2016 - 12:56:16 AM PDT. Study type: CT no contrast Interpretation / Wet Read by: Interpret - Radiologist Echocardiogram Report Reason For Study: Dizziness Interpretation Summary Normal left ventricle size with ejection fraction 60-65%. Severely dilated left atrium. Moderately dilated right atrium. Mild aortic valve sclerosis. Mild to moderate aortic regurgitation. Mild mitral annular calcification. Mild mitral regurgitation. Mild tricuspid regurgitation. The right ventricular systolic pressure is estimated at 40 mmHg assuming a right atrial pressure of 15 mm Hg. Comparison is made with the echocardiogram of 01/08/2015, there has been no significant change. Electronically signed by: Bessie Denise on Reading Physician:12/02/2016 03:03 PM Plan Impression Impression #1 syndrome of inappropriate ADH secretion #2 hyponatremia #3 metabolic acidosis number for recurrent hypoglycemia recommendations #1 mildly additional recommendation would be to check an anti-histone antibody to see if she could be having a lupus type reaction to some of her operations. As her sodium and renal function is back to normal I am not sure how much more I can add to the clinical picture. Ja Salmeron DO Dec 04, 2016 13:44
[2016-12-04 14:16] VITALS: BP 106/51; PULSE 62; RESP 14; O2SAT 95
--- NOTE | 2016-12-04 14:52 | NUR ---
STUDENT NURSING NOTE Pt is A/O x 3, and has visited most of the day with her daughter, Elida, and friend, Lise. BG has been checked every two hours and is maintaining right around the low 70's. She is on a water-only diet for [address] Qureshi. Pt is pleasant and appropriate and states she is feeling better and like she's getting "back to normal".
--- NOTE | 2016-12-04 15:32 | PCM.PNMED ---
Subjective Date of Service Dec 04, 2016 Subjective No complaints, says feet/legs much less swollen Exam Vital Signs Vital Sign - Last Date Time Temp Pulse Resp B/P Pulse Ox O2 Delivery O2 Flow Rate FiO2 12/04/16 14:16 36.6 62 14 106/51 95 Room Air Intake and Output 12/03/16 12/03/16 12/04/16 Cumulative From/Thru 15:00 23:00 07:00 11/30/16 22:49 - 12/03/16 20:10 Intake Total 420 ml 3215 ml Output Total 850 ml 2950 ml Balance -430 ml 265 ml Intake Oral 400 ml 1080 ml IV Total 20 ml 2135 ml Output Urine Total 850 ml 2950 ml # Voids 2 8 # Bowel Movements 1 4 Exam Gen: Alert and oriented, NAD Heart: Reg with soft sys murmur Lungs: clear Abd: soft, NT Extrem: no pedal edema IVs and Medications Medications Reviewed: Medications were reviewed in detail Lab and Diagnostics Result Diagram: 12/03/16 0615 12/04/16 0620 X-Rays, CTs and MRIs US VENOUS LEG DUPLEX UNILATERAL, RIGHT IMPRESSION: No evidence of deep vein thrombosis involving the right lower extremity. Dictated by: Teena Wright MD, PhD on 11/27/2016 at 21:43 Approved by: Teena Wright MD, PhD on 11/27/2016 at 21:43 CT C-Spine Interpretation CONCLUSION: No evidence of fracture or subluxation. Degenerative changes and disc bulge with central canal stenosis at L4-5. Osteopenia. Right nephrolithiasis. Other findings as above. This report was transmitted to the emergency room at 12/01/2016 - 12:56:16 AM PDT. Study type: CT no contrast Interpretation / Wet Read by: Interpret - Radiologist Echocardiogram Report Reason For Study: Dizziness Interpretation Summary Normal left ventricle size with ejection fraction 60-65%. Severely dilated left atrium. Moderately dilated right atrium. Mild aortic valve sclerosis. Mild to moderate aortic regurgitation. Mild mitral annular calcification. Mild mitral regurgitation. Mild tricuspid regurgitation. The right ventricular systolic pressure is estimated at 40 mmHg assuming a right atrial pressure of 15 mm Hg. Comparison is made with the echocardiogram of 01/08/2015, there has been no significant change. Electronically signed by: Bessie Denise on Reading Physician:12/02/2016 03:03 PM Assessment & Plan Kathryn Rodriguez is a 71 year old female with Scoliosis and osteoporosis presenting to [facility] emergency department complaining of worsening back pain 1 Acute on Chronic back pain due to Spinal L4-L5 stenosis. Present on admission Chronic issues now causing some disability for the patient. Patient lives alone and independently - Physical therapy working with patient - Orthopedic consultation to consider surgical options - no note in chart - Oxycodone PRN pain - Social work consultation -- Added morphine IV pain medication, gabapentin, ketorolac IV 2 Right leg cellulitis. Present on admission. Improving and resolving Treated with Bactrim and Augmentin. No evidence of Deep vein thrombosis. No Urinary tract infections - continue Augmentin daily. It is unclear when her last dose would be, per H&P "only a few tabs left" 3 Hyponatremia. Present on admission. Normal today. [place] due to SIADH -- Initially Suspected due to hypovolemia and dehydration. TSH 4.0 -- had urine osmolality, serum osmolality, urine sodium, random cortisol felt c/ w SIADH -- Echocardiogram 12/02: Normal left ventricle size with ejection fraction 60-65% . -- initially IVF with NS which were discontinued 12/02 a.m., fluid restriction as ordered. Consult to Dr. Salmeron. He will see the patient, the patient the recommendations -- Consulted endocrinology as she is also severely hypoglycemic on the morning of 12/02, Dr. Salmeron expressed concern for adrenal insufficiency. -- CT chest with scan is ordered per Dr. Salmeron's recommendations. No nodule/ mass seen Nephrology consult 12/02: IMPRESSION: 1. Syndrome of inappropriate secretion of antidiuretic hormone secondary to possible lung mass along with herbal supplements, normal saline during this admission, and Toradol. 2. Euvolemic hyponatremia secondary to syndrome of inappropriate secretion of antidiuretic hormone. 3. Metabolic acidosis with hypoglycemia. I am very concerned about the coexistence of adrenal insufficiency in this patient. 4. Leukopenia. 5. Lung mass. RECOMMENDATION: We need to immediately stop both the Toradol and the normal saline, and the patient needs to be on an 800 mL fluid restriction. I would also like to check an KRYSTIN, serum protein electrophoresis, uric acid, rheumatoid factor, C4, C3, sed rate, and I would have like to obtain an echocardiogram. In addition, I am going to order an emergent cosyntropin challenge, and we will be getting three cortisol specimens following this. Once this is obtained, I am going to give her hydrocortisone 100 mg. We also need to follow her labs very closely. I would strongly urge further recommendations on her pulmonary nodule, as this may be also part of her clinical picture. NEPHROLOGY FOLLOW UP 12/03: Impression #1 euvolemic hyponatremia secondary to syndrome of inappropriate ADH secretion and #2 recurrent hypoglycemia #3 leukopenia Recommendations #1 I am concerned that there may be an occult process namely a malignancy underlying some of the patient's problems. With her insulin and C- peptide levels were low I would be concerned about it, no adenopathy or possible MEN. I would like to go ahead and order a glucagon level along with a chromogranin A and CA 27.29. I would also recommend doing a CT of the abdomen and pelvis to rule out a pancreatic mass.(I've ordered) I will also stop the hydrocortisone.(done) # Abdominal CT: Small arterial phase enhancing hepatic lesion with imaging characteristics most suggestive of a hepatic hemangioma, however hypervascular neoplastic processes including solitary metastatic lesion could produce a similar appearance. Recommend abdominal ultrasound in 3 months to confirm stability. 4. Hypoglycemia -- Blood glucose was 21 on the a.m. of 12/02, protocol was initiated with D5 -- Patient was thought to be having a stroke, code stroke was called. -- Patient eventually recovered after receiving the D5 amp, completely back to back normal -- CT of head was ordered, negative for acute findings. -- EKG was ordered and did not show any acute findings or changes -- There is certainly a concern for adrenal insufficiency per Dr. Salmeron. -- Due to her glucose checks are ordered -- Code stroke was called 12/02 morning it was not clear immediately what was wrong with patient. Serum ammonia levels, acetone levels, lactic acid are all within normal -- Dr Qureshi, Endocrinology consulted 12/02: Assessment 71-year-old generally healthy woman presents with weakness and confusion, found to have hyponatremia and hypoglycemia. Reduced mental status seems to be subacute over recent months according to daughter, somewhat accelerated over the past 4 weeks. Weakness to the point of difficulty ambulating seems to be acute for several days prior to admission only. Notable element of history includes polypharmacy with herbal products. # Hypoglycemia - Blood sugars were approximately ~20 between the hours of 05:45 (morning lab draw) and symptoms of acute encephalopathy at approximate a 7 AM. At that time, fingerstick glucoses confirm hypoglycemia. Since this morning, it appears that she is received intravenous glucose as well as glucocorticoid supplement; hence we have no means to determine hypoglycemia is persistent and recurrent. Differential diagnosis for severe hypoglycemia includes: Drug interaction with co-trimoxazole, possibly compounded by other herbs and heparin ; less likely iatrogenic or factitious; less likely insulinoma, hypoadrenalism, autoimmune or paraneoplastic. It is important to note that poor by mouth intake does not explain this level of hypoglycemia. - Check insulin and C-peptide levels on the 12/02 05:45 AM sample, to determine if this is pancreatic mediated - Perform q2hr capillary blood sugar monitoring - I would suggest to discontinue hydrocortisone and dextrose supplementation as soon as possible to see if hypoglycemia is recurrent - if there is recurrent severe hypoglycemia (BG < 50) then obtain concurrent insulin & C-peptide level, while initiating emergent glucose supplement - If hypoglycemia is mild and abates over the next day, then some kind of drug interaction carryover from medication herbs taken prior to admission is the most likely explanation - If there is no recurrence we can consider a limited fasting study prior to discharge # Rule out hypoadrenalism - Hyponatremia, metabolic acidosis, hypoglycemia are all compatible with adrenal insufficiency. There are no symptoms of chronic adrenal insufficiency such as abdominal discomfort, weight loss, postural hypotension, hyperpigmentation. Blood pressure is normal as is potassium. Her metabolic acidosis is mild. There is no hypereosinophilia or hypercalcemia. A randomly obtained afternoon cortisol 17.6 in the setting of low pretest probably is sufficient to rule out the diagnosis of hypoadrenalism. - Follow-up various other cortisol measurements that have been made randomly, as well as Cortrosyn stim test which seems to have been ordered - I do not feel strongly about hydrocortisone therapy, as the patient has not been hypotensive, but okay to continue until other cortisol results are final # SIADH - there is no obvious cause of her hyponatremia with elevated urinary osmolality. She seems to be no suspicious medications, but herbal causes of SIADH are probably not well defined. There is no evidence for the typical neurologic or pulmonary causes. Her thyroid status appears to be normal. In light of her progressive albeit vague encephalopathy of the past month she may have a CARE ATTENDANT or malignant process underlying this. - Medical evaluation for primary cause is appropriate - Continue free water restriction and management per nephrology consult # Hypothyroidism - continue supplement FOLLOW UP 12/03: Assessment She has had low normal blood glucose spontaneously since her episode of acute hypoglycemia yesterday morning. I recommend that we proceed towards definitive evaluation of her hypoglycemia. To do so I would like to eliminate the confounding factor of glucose treatment, hydrocortisone therapy, and a minor issue of heparin which has been reported to cause hypoglycemia. While her high-dose steroids are wearing off today I believe she can have a normal diet. Starting tonight I would like to initiate a supervised fast. With appropriate blood tests for insulinoma rule out. Plan: #1 discontinue hydrocortisone, heparin #2 capillary blood glucose every 2 hours while awake #3 regular diet today. #4 no glucose interventions for blood glucose greater than 55 MG/DL #5 insulin, C-peptide and serum glucose stat for blood glucose less than 55 mg/ dl #6 glucagon with serial testing for glucose and beta hydroxybutyrate 1 blood glucose is less than 55 MG/DL #7 emergency glucose resuscitation with D50 only for blood glucose less than 50 MG/DL with symptoms #8 if no spontaneous severe hypoglycemia today, we will initiate fasting tomorrow #9 contact me at [phone] if she develops hypoglycemia today OF 12/04: Dr Qureshi is in process of having patient fast and will do labs if she develops hypglycemia. If none by tomorrow prob GA home 5 Mild elevated transaminase. Present on admission - Hepatitis panel ordered including Hepatitic C: Negative 6. Hypothyroidism - checking TSH: WNL -- We will continue home meds once that reviewed by the admission nurse - Acetaminophen as needed for mild pain/fever/headache - Bowel regimen as needed - Antiemetic as needed Disposition: hopefully home tomorrow with PT . GI Prophylaxis: H2 michelle VTE Prophylaxis: Sub-Q Heparin (Unfractionated) Resuscitation Status: CPR: Attempt Resuscitation Melissa Brewer MD Dec 04, 2016 15:32
--- NOTE | 2016-12-04 15:59 | NUR ---
faxed facesheet and gave access to [facility], Gabriella Loja and [facility]
[2016-12-04 16:54] VITALS: BP 108/66; PULSE 59; RESP 15; O2SAT 94
[2016-12-04] MEDS ORDERED: 0.9% Sodium Chloride 250 ML ONE (20:24)
[2016-12-05] VITALS (7 sets, daily range): BP systolic 116–144; BP diastolic 63–74; PULSE 56–77; RESP 14–16; O2SAT 95–98
--- NOTE | 2016-12-05 04:36 | NUR ---
Confusion/Blood Sugar Pt has had ongoing confusion throughout the night. Pt has stated multiple times that she hears conversation that are not real. This last time she thought she heard a conversation between her roommate and "they". And that her roommates answers were her answers, such as were she worked. Pt seems fine otherwise and is AOX3. Pt states she isn't ready to go home while she is having episodes of hearing conversations. Care continues
--- NOTE | 2016-12-05 06:35 | NUR ---
Blood Sugar Pt Blood Sugar reached 54. Lab STAT ordered. Protocol followed and French Qureshi MD called and notified of patients status. Ordered Regular diet as soon as labs completed.
--- NOTE | 2016-12-05 07:03 | PCM.CHPMED ---
Subjective Date of Service: Dec 05, 2016 Primary Physician: Admitting Physician: Deepak Pereira MD Primary Care Physician: Lucila Retana ND, LAc Attending Physician: Deepak Pereira MD Chief Complaint: Chief Complaint: Endocrinology consultation: Subsequent note regarding hypoglycemia and hyponatremia. History of Present Illness: Subjective: She continues to report vague hallucinatory phenomena, even when euglycemic. Fasting protocol achieved <55 mg/dl glucose endpoint. At BG 54 mg/dl at 6:30 AM , patient seems to be appropriately sleepy and mildly encephalopathic, but not acutely so. Labs have been drawn. [facility] Bedside Blood Glucose: 54 Allergies: Coded Allergies: tetracycline (Verified Allergy, Unknown, 11/30/16) Social History Hx Alcohol Use: NoHx Substance Use: NoHx Tobacco Use: No Smoking Status: Never Smoker Living Arrangement: Alone (daughter flying in from [place]) Exam Vital Signs Vital Sign - Last Date Time Temp Pulse Resp B/P Pulse Ox O2 Delivery O2 Flow Rate FiO2 12/05/16 06:07 35.6 56 16 138/63 96 Room Air Intake and Output 12/04/16 12/04/16 12/05/16 Cumulative From/Thru 15:00 23:00 07:00 11/30/16 22:49 - 12/05/16 01:11 Intake Total 800 ml 120 ml 4135 ml Output Total 800 ml 3750 ml Balance 0 ml 120 ml 385 ml Intake Oral 800 ml 1880 ml IV Total 0 ml 120 ml 2255 ml Output Urine Total 800 ml 3750 ml # Voids 2 10 # Bowel Movements 1 5 No exam or personal interview today, as I am off-site reviewing case by phone with nurses and online data. Lab and Diagnostics Result Diagram: 12/03/16 0615 12/04/16 0620 Assessment & Plan Assessment Assessment: Her BG data over the past 2 days and for the 24hr fast are actually within normal range for women. I do not think that she is having dangerous hypoglycemia at this point. Her BG of ~20 at 6AM two days ago was severe, pathological, and has not recurred. We do not have a clear explanation for that episode, but I suspect toxic drug-herbal interaction. Based on the low insulin level at the time of BG ~20, she is very unlikely to have insulinoma, surreptitious sulfonylurea or insulin use, or adverse co-trimoxazole reaction. Based on the remitting nature of this, I do not suspect an IGF-secreting neoplasm. The picture is not clear, but she seems to have counter-regulatory deficit, or possibly impaired hepatic gluconeogenesis. The latter is usually seen in severe liver disease, alcoholism, adrenal insufficiency, inborn metabolic errors, etc. None of these diagnoses seem to fit. The glycemic response to glucagon performed today will test whether the liver gluconeogenic capacity is intact. 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 Endocrine Recommendations today: #1 discontinue fast and return to general diet #2 discontinue q2hr capillary blood glucose, but continue QID ACHS capillary glucose until mental status issues are stable then d/c. I do not think that patient needs home capillary BG monitoring, unless her clinical status declines. #3 Nutrition consult to maintain adequat caloric intake. I would recommend spreading calories throughout the day, with a bedtime snack. #4 Refer patient to me in Endocrine clinic for follow up within ~2-3 weeks #5 Overall I would reassure the patient and family that her glucoses are within the normal range for her and probably not the cause of her confusion, hallucinations or weakness at this point #6 OK to d/c patient per Dr. Brewer's judgment when other medical issues are stable SIADH - I will defer to Dr. Salmeron, but it seems that this has resolved and that she could be d/c'd without strict fluid restriction. I am off-call, but available by phone [phone]. Many thanks to the [facility] nurses for their excellent care of this complex case. Problems: Pain Evaluation: Pain not Controlled GI Prophylaxis: H2 michelle VTE Prophylaxis: Sub-Q Heparin (Unfractionated) Resuscitation Status: CPR: Attempt Resuscitation Gigi Qureshi MD Dec 05, 2016 07:03
[2016-12-05] MEDS: Famotidine Inj 20 MG in IV Premix 1 EACH IV SCH ×2 (08:56→20:04)
[2016-12-05] MEDS: Amoxicillin-Clav 875-125 mg Tablet PO SCH (08:57)
--- NOTE | 2016-12-05 09:25 | NUR ---
JUSTIN signed by JESSIE Damon
--- NOTE | 2016-12-05 10:45 | NUR ---
Coughing after drinking Pt reported that she coughs after she drinks beverages with straws. Hospitalist notified and speech evaluation ordered. Pt asked to refrain from eating breakfast until she was seen by SP. Will continue to monitor.
--- NOTE | 2016-12-05 13:18 | NUR ---
Social Work- Continued D/C Planning Data: EMR reviewed. Pt is on day 4 of hospitalization for spinal stenosis, loss of ambulation ability per H&P. Per morning rounds pt is medically ready to discharge today. Most recent PT evaluation is recommending SNF. Referrals made to [facility], [facility], and [facility] (in order or preference). MAXI contacted [facility] who stated they are able to accept the pt. MAXI contacted Nurse re: insurance authorization and they stated that auth cannot be obtained from [facility] over the weekend so the pt's stay will be padded until Wednesday. MAXI spoke with pt and daughter Elida ([phone]) at bedside to update them. Pt stated she would like to go home, and pt's daughter expressed concerns about pt going home. SW stated that it is possible she will progress by Wednesday and can go home with HH. MAXI also posed the option of a private pay caregiver. MAXI provided contact info for [facility] to assist family in further planning. MAXI will continue to follow closely. Assessment: Pt who may benefit from SNF vs. Home with HH. Plan: Pt will stay until Wednesday when authorization for [facility] SNF can be requested from [facility]. Pt will likley discharge to SNF vs home with HH dependeing on PT reccomendations/insurance authorization. MAXI will continue to follow. JESSIE Serrano
--- NOTE | 2016-12-05 13:49 | NUR ---
Evaluation completed. Please go to "Notes" then click on "Assessments and Notes" (bottom left corner of screen). Then select appropriate discipline tab on top of screen.
--- NOTE | 2016-12-05 16:39 | PCM.PNMED ---
Subjective Date of Service Dec 05, 2016 Subjective No complaints, anxious to go home but so far accepting the recommendation for SNF Exam Vital Signs Vital Sign - Last Date Time Temp Pulse Resp B/P Pulse Ox O2 Delivery O2 Flow Rate FiO2 12/05/16 11:16 36.3 63 14 131/66 95 Room Air Intake and Output 12/04/16 12/04/16 12/05/16 Cumulative From/Thru 15:00 23:00 07:00 11/30/16 22:49 - 12/05/16 01:11 Intake Total 800 ml 120 ml 4135 ml Output Total 800 ml 3750 ml Balance 0 ml 120 ml 385 ml Intake Oral 800 ml 1880 ml IV Total 0 ml 120 ml 2255 ml Output Urine Total 800 ml 3750 ml # Voids 2 10 # Bowel Movements 1 5 Exam General: Alert and oriented, no acute distress Heart: Regular Lungs: Clear Abdomen: Soft, non-tender Extremities: No pedal edema has faint erythema of lower legs bilat IVs and Medications Medications Reviewed: Medications were reviewed in detail Lab and Diagnostics Result Diagram: 12/03/16 0615 12/05/16 0650 X-Rays, CTs and MRIs US VENOUS LEG DUPLEX UNILATERAL, RIGHT IMPRESSION: No evidence of deep vein thrombosis involving the right lower extremity. Dictated by: Teena Wright MD, PhD on 11/27/2016 at 21:43 Approved by: Teena Wright MD, PhD on 11/27/2016 at 21:43 CT C-Spine Interpretation CONCLUSION: No evidence of fracture or subluxation. Degenerative changes and disc bulge with central canal stenosis at L4-5. Osteopenia. Right nephrolithiasis. Other findings as above. This report was transmitted to the emergency room at 12/01/2016 - 12:56:16 AM PDT. Study type: CT no contrast Interpretation / Wet Read by: Interpret - Radiologist Echocardiogram Report Reason For Study: Dizziness Interpretation Summary Normal left ventricle size with ejection fraction 60-65%. Severely dilated left atrium. Moderately dilated right atrium. Mild aortic valve sclerosis. Mild to moderate aortic regurgitation. Mild mitral annular calcification. Mild mitral regurgitation. Mild tricuspid regurgitation. The right ventricular systolic pressure is estimated at 40 mmHg assuming a right atrial pressure of 15 mm Hg. Comparison is made with the echocardiogram of 01/08/2015, there has been no significant change. Electronically signed by: Bessie Denise on Reading Physician:12/02/2016 03:03 PM Assessment & Plan Kathryn Rodriguez is a 71 year old female with Scoliosis and osteoporosis presenting to [facility] emergency department complaining of worsening back pain 1 Acute on Chronic back pain due to Spinal L4-L5 stenosis. Present on admission Chronic issues now causing some disability for the patient. Patient lives alone and independently - Physical therapy working with patient, have recommended SNF - Orthopedic consultation to consider surgical options - no note in chart - Oxycodone PRN pain - Social work consultation -- Now on gabapentin, doesn't appear to have needed prn pain meds recently 2 Right leg cellulitis. Present on admission. resolving Treated with Bactrim and Augmentin. No evidence of Deep vein thrombosis. No Urinary tract infections - Augmentin continued in hosp. It is unclear when her last dose would be, per H&P "only a few tabs left". Will DC today 3 Hyponatremia. Present on admission. Normal December 03 and . [place] due to SIADH , currently just treated with fluid restriction -- Initially Suspected due to hypovolemia and dehydration. TSH 4.0 -- had urine osmolality, serum osmolality, urine sodium, random cortisol felt c/ w SIADH -- Echocardiogram 12/02: Normal left ventricle size with ejection fraction 60-65% . -- initially IVF with NS which were discontinued 12/02 a.m., fluid restriction as ordered. Consulted Dr. Salmeron. He will see the patient, the patient the recommendations -- Consulted endocrinology as she is also severely hypoglycemic on the morning of 12/02, Dr. Salmeron expressed concern for adrenal insufficiency. -- CT chest with scan is ordered per Dr. Salmeron's recommendations. No nodule/ mass seen Nephrology consult 12/02: IMPRESSION: 1. Syndrome of inappropriate secretion of antidiuretic hormone secondary to possible lung mass along with herbal supplements, normal saline during this admission, and Toradol. 2. Euvolemic hyponatremia secondary to syndrome of inappropriate secretion of antidiuretic hormone. 3. Metabolic acidosis with hypoglycemia. I am very concerned about the coexistence of adrenal insufficiency in this patient. 4. Leukopenia. 5. Lung mass. RECOMMENDATION: We need to immediately stop both the Toradol and the normal saline, and the patient needs to be on an 800 mL fluid restriction. I would also like to check an KRYSTIN, serum protein electrophoresis, uric acid, rheumatoid factor, C4, C3, sed rate, and I would have like to obtain an echocardiogram. In addition, I am going to order an emergent cosyntropin challenge, and we will be getting three cortisol specimens following this. Once this is obtained, I am going to give her hydrocortisone 100 mg. We also need to follow her labs very closely. I would strongly urge further recommendations on her pulmonary nodule, as this may be also part of her clinical picture. NEPHROLOGY FOLLOW UP 12/03: Impression #1 euvolemic hyponatremia secondary to syndrome of inappropriate ADH secretion and #2 recurrent hypoglycemia #3 leukopenia Recommendations #1 I am concerned that there may be an occult process namely a malignancy underlying some of the patient's problems. With her insulin and C- peptide levels were low I would be concerned about it, no adenopathy or possible MEN. I would like to go ahead and order a glucagon level along with a chromogranin A and CA 27.29. I would also recommend doing a CT of the abdomen and pelvis to rule out a pancreatic mass.(No pancreatic mass identified but see below for other abnormalities) I will also stop the hydrocortisone.(done) # hepatic lesion Abdominal CT: Small arterial phase enhancing hepatic lesion with imaging characteristics most suggestive of a hepatic hemangioma, however hypervascular neoplastic processes including solitary metastatic lesion could produce a similar appearance. Recommend abdominal ultrasound in 3 months to confirm stability. # Adnexal mass: -- Abdominal CT: 3.8 x 3.2 cm left adnexal region mass. Ovarian carcinoma cannot be excluded. Recommend pelvic ultrasound for further evaluation. -- ordered pelvic ultrasound # . Hypoglycemia -- Blood glucose was 21 on the a.m. of 12/02, protocol was initiated with D5 -- Patient was thought to be having a stroke, code stroke was called. -- Patient eventually recovered after receiving the D5 amp, completely back to back normal -- CT of head was ordered, negative for acute findings. -- EKG was ordered and did not show any acute findings or changes -- There is certainly a concern for adrenal insufficiency per Dr. Salmeron. -- Due to her glucose checks are ordered -- Code stroke was called 12/02 morning it was not clear immediately what was wrong with patient. Serum ammonia levels, acetone levels, lactic acid are all within normal -- Dr Qureshi, Endocrinology consulted 12/02: Assessment 71-year-old generally healthy woman presents with weakness and confusion, found to have hyponatremia and hypoglycemia. Reduced mental status seems to be subacute over recent months according to daughter, somewhat accelerated over the past 4 weeks. Weakness to the point of difficulty ambulating seems to be acute for several days prior to admission only. Notable element of history includes polypharmacy with herbal products. # Hypoglycemia - Blood sugars were approximately ~20 between the hours of 05:45 (morning lab draw) and symptoms of acute encephalopathy at approximate a 7 AM. At that time, fingerstick glucoses confirm hypoglycemia. Since this morning, it appears that she is received intravenous glucose as well as glucocorticoid supplement; hence we have no means to determine hypoglycemia is persistent and recurrent. Differential diagnosis for severe hypoglycemia includes: Drug interaction with co-trimoxazole, possibly compounded by other herbs and heparin ; less likely iatrogenic or factitious; less likely insulinoma, hypoadrenalism, autoimmune or paraneoplastic. It is important to note that poor by mouth intake does not explain this level of hypoglycemia. - Check insulin and C-peptide levels on the 12/02 05:45 AM sample, to determine if this is pancreatic mediated - Perform q2hr capillary blood sugar monitoring - I would suggest to discontinue hydrocortisone and dextrose supplementation as soon as possible to see if hypoglycemia is recurrent - if there is recurrent severe hypoglycemia (BG < 50) then obtain concurrent insulin & C-peptide level, while initiating emergent glucose supplement - If hypoglycemia is mild and abates over the next day, then some kind of drug interaction carryover from medication herbs taken prior to admission is the most likely explanation - If there is no recurrence we can consider a limited fasting study prior to discharge # Rule out hypoadrenalism - Hyponatremia, metabolic acidosis, hypoglycemia are all compatible with adrenal insufficiency. There are no symptoms of chronic adrenal insufficiency such as abdominal discomfort, weight loss, postural hypotension, hyperpigmentation. Blood pressure is normal as is potassium. Her metabolic acidosis is mild. There is no hypereosinophilia or hypercalcemia. A randomly obtained afternoon cortisol 17.6 in the setting of low pretest probably is sufficient to rule out the diagnosis of hypoadrenalism. - Follow-up various other cortisol measurements that have been made randomly, as well as Cortrosyn stim test which seems to have been ordered - I do not feel strongly about hydrocortisone therapy, as the patient has not been hypotensive, but okay to continue until other cortisol results are final # SIADH - there is no obvious cause of her hyponatremia with elevated urinary osmolality. She seems to be no suspicious medications, but herbal causes of SIADH are probably not well defined. There is no evidence for the typical neurologic or pulmonary causes. Her thyroid status appears to be normal. In light of her progressive albeit vague encephalopathy of the past month she may have a SO[employer] M[employer]ER or malignant process underlying this. - Medical evaluation for primary cause is appropriate - Continue free water restriction and management per nephrology consult # Hypothyroidism - continue supplement FOLLOW UP 12/03: Assessment She has had low normal blood glucose spontaneously since her episode of acute hypoglycemia yesterday morning. I recommend that we proceed towards definitive evaluation of her hypoglycemia. To do so I would like to eliminate the confounding factor of glucose treatment, hydrocortisone therapy, and a minor issue of heparin which has been reported to cause hypoglycemia. While her high-dose steroids are wearing off today I believe she can have a normal diet. Starting tonight I would like to initiate a supervised fast. With appropriate blood tests for insulinoma rule out. Plan: #1 discontinue hydrocortisone, heparin #2 capillary blood glucose every 2 hours while awake #3 regular diet today. #4 no glucose interventions for blood glucose greater than 55 MG/DL #5 insulin, C-peptide and serum glucose stat for blood glucose less than 55 mg/ dl #6 glucagon with serial testing for glucose and beta hydroxybutyrate 1 blood glucose is less than 55 MG/DL #7 emergency glucose resuscitation with D50 only for blood glucose less than 50 MG/DL with symptoms #8 if no spontaneous severe hypoglycemia today, we will initiate fasting tomorrow #9 contact me at [phone] if she develops hypoglycemia today OF 12/04: Dr Qureshi is in process of having patient fast and will do labs if she develops hypglycemia. OF : Pt did drop to [address] Qureshi's labs were drawn. He requested she follow up with him as an outpt in 2-3 weeks # Possible Dementia - daughter concerned about some of patients comments/behavior and has requested evaluation, will consult OT # Mild elevated transaminase. Present on admission - Hepatitis panel ordered including Hepatitic C: Negative # . Hypothyroidism - TSH: WNL -- continue home med - Acetaminophen as needed for mild pain/fever/headache - Bowel regimen as needed - Antiemetic as needed Disposition: PT feels she needs SNF but can't get authorized by her insurance until Wednesday . GI Prophylaxis: H2 michelle VTE Prophylaxis: Sub-Q Heparin (Unfractionated) Resuscitation Status: CPR: Attempt Resuscitation Melissa Brewer MD Dec 05, 2016 16:39
--- NOTE | 2016-12-05 16:50 | NUR ---
HYPOGLYCEMIA NUTRITION EDUCATION. Dr. Qureshi requested consult to ensure pt. understands that she should be following plan of frequent, small meals, including evening snack. Pt. was very groggy but seemed to understand instructions. She requested to follow Dr. Qureshi on outpatient basis.
--- NOTE | 2016-12-05 23:16 | NUR ---
BLOOD SUGAR At 2015 for assessment and medications, pt was drowsy and needed repeated stimuli to wake up. Pt had difficulty opening eyes entirely and had mumble speech. Blood sugar check was 61. Gave 8 oz apple juice. Recheck BS was 95. Pt much more awake and able to take a walk with PSYCHIATRIC SECURITY NURSE, few laps around unit. Will recheck as needed per decreased LOC and symptoms.
[2016-12-06 06:18] VITALS: BP 136/72; PULSE 60; RESP 16; O2SAT 96
[2016-12-06 07:57] VITALS: BP 131/75; PULSE 60; RESP 15; O2SAT 96
[2016-12-06] MEDS: Famotidine Inj 20 MG in IV Premix 1 EACH IV SCH ×2 (08:00→22:35)
[2016-12-06 08:48] LABS: Mean Corpuscular Hemoglobin 31.6 pg (27.0-35.0); Mean Corpuscular Volume 93.4 fL (81-100)
--- NOTE | 2016-12-06 08:54 | NUR ---
SW - Continued Discharge Planning SW called [facility] and [facility] and left messages to follow up on pt referral. JESSIE Serrano
--- NOTE | 2016-12-06 10:35 | DRSVH ---
PROCEDURE: US PELVIC SONOGRAM + TRANSVAGINAL SONOGRAM INDICATIONS: adnexal mass seen on CT TECHNIQUE: Real-time scanning was performed of the pelvic organs, with image documentation. Additional endovagi nal scanning was necessary due to incomplete visualization of the adnexal and endometrial structures by transabdominal scanning. COMPARISON: [facility], CT, CT ABD W&WO CON PELVIS W CON, 12/03/2016, 16:58. FINDINGS: Transabdominal scanning: Limited scanning through the kidneys shows no hydronephrosis. No pathologi c free abdominal or pelvic fluid. Endovaginal scanning: Uterus: Uterus is normal in size at 4.3 x 4.6 x 2.2 cm. The endometrium measures 2 mm in combined t hickness. Uterine calcifications are present. Ovaries: Ovaries are not visualize secondary to overlying bowel gas. The region of mass lesion identi fied on CT is not able to be evaluated secondary to overlying bowel gas. IMPRESSION: 1. Secondary to overlying bowel gas loops within the pelvis, adnexal regions including the region of concern within the left adnexal region are unable to be evaluated. Followup ultrasound may be obtaine d for better visualization and bowel loops are less prominent. Otherwise, further evaluation with MRI may be obtained. Dictated by: Yissel Palacio M.D. on 12/06/2016 at 10:31 Approved by: Yissel Palacio M.D. on 12/06/2016 at 10:34
[2016-12-06 12:39] VITALS: PULSE 65; RESP 15; O2SAT 96
--- NOTE | 2016-12-06 14:24 | NUR ---
SW - Continued Discharge Planning SW contacted [facility] and [facility] to inquire re: pt's referral. Both [facility] and [facility] stated that the pt is accepted. SW will follow up re: insurance authorization on Wednesday (12/07) as auth cannot be obtained from [facility] on weekends. MAXI will continue to follow. JESSIE Serrano
--- NOTE | 2016-12-06 15:35 | NUR ---
SW - Readiness for Discharge Data: Pt is on day 5 of hospitalization for spinal stenosis loss of ambulation ability. EMR reviewed. Pt is likely to discharge tomorrow, is up and independent in room. PT had been recommending SNF and when evaluated today pt's mobility had improved and PT is now recommending home with HH. SW met with pt and dtr at bedside to update them. Pt is agreeable to plan, had no provider preference. [facility] rotating calendar, gave access. Pt stated she does not believe she will be permanently homebound but temporarily driving will be a hardship. Dtr expressed concern that this would not be adequate support for her mom. SW discussed other options for additional help, including director clinical information services, private pay. Pt possible to discharge home tomorrow via family. All updated and agreeable to plan. SW will continue to follow. Assessment: Pt who would benefit from services Plan: [facility]. Access given and face to face in folder to be signed. No further needs assessed. SW will continue to follow. JESSIE Serrano
--- NOTE | 2016-12-06 16:10 | PCM.PNMED ---
Subjective Date of Service Dec 06, 2016 Subjective Patient was seen and examined at bedside today. Patient denies any chest pain, shortness of breath, nausea, vomiting, diarrhea. Patient states that she has improved significantly however she is still unsteady on her feet. The patient' s daughter was present during the exam and agrees/feels that her mother would be better in a [place] facility. Overnight events: None Exam Vital Signs Vital Sign - Last Date Time Temp Pulse Resp B/P Pulse Ox O2 Delivery O2 Flow Rate FiO2 12/06/16 12:39 36.4 65 15 96 12/06/16 07:57 Room Air Intake and Output 12/05/16 12/05/16 12/06/16 Cumulative From/Thru 15:00 23:00 07:00 11/30/16 22:49 - 12/06/16 06:18 Intake Total 1220 ml 763 ml 696 ml 6814 ml Output Total 2700 ml 1350 ml 350 ml 8150 ml Balance -1480 ml -587 ml 346 ml -1336 ml Intake Oral 1200 ml 713 ml 636 ml 4429 ml IV Total 20 ml 50 ml 60 ml 2385 ml Output Urine Total 2700 ml 1000 ml 350 ml 7800 ml Urine/Stool Mix 350 ml 350 ml # Voids 10 # Bowel Movements 0 5 Exam Physical Exam: GEN: Patient was awake, alert, responding appropriately to questions HEENT: Pupils equal round and reactive to light, extraocular eye muscles intact , Neck soft supple, trachea midline, nomocephalic/atraumatic CV: +S1/S2, regular rate and rhythm, no murmurs auscultated Respiratory: CTAB, no wheezes, rales, rhonchi GI: +bowel sounds x4, soft, compressible, nontender to palpation EXT: no clubbing, cyanosis, edema Musculoskeletal: Positive scoliosis Neuro: Cranial nerves II-XII grossly intact Psych: mood and affect were appropriate IVs and Medications Medications Reviewed: Medications were reviewed in detail Lab and Diagnostics Result Diagram: 12/06/1620 12/06/16 08 X-Rays, CTs and MRIs US VENOUS LEG DUPLEX UNILATERAL, RIGHT IMPRESSION: No evidence of deep vein thrombosis involving the right lower extremity. Dictated by: Teena Wright MD, PhD on 11/27/2016 at 21:43 Approved by: Teena Wright MD, PhD on 11/27/2016 at 21:43 CT C-Spine Interpretation CONCLUSION: No evidence of fracture or subluxation. Degenerative changes and disc bulge with central canal stenosis at L4-5. Osteopenia. Right nephrolithiasis. Other findings as above. This report was transmitted to the emergency room at 12/01/2016 - 12:56:16 AM PDT. Study type: CT no contrast Interpretation / Wet Read by: Interpret - Radiologist Echocardiogram Report Reason For Study: Dizziness Interpretation Summary Normal left ventricle size with ejection fraction 60-65%. Severely dilated left atrium. Moderately dilated right atrium. Mild aortic valve sclerosis. Mild to moderate aortic regurgitation. Mild mitral annular calcification. Mild mitral regurgitation. Mild tricuspid regurgitation. The right ventricular systolic pressure is estimated at 40 mmHg assuming a right atrial pressure of 15 mm Hg. Comparison is made with the echocardiogram of 01/08/2015, there has been no significant change. Electronically signed by: Bessie Denise on Reading Physician:12/02/2016 03:03 PM Assessment & Plan Kathryn Rodriguez is a 71 year old female with Scoliosis and osteoporosis presenting to [facility] emergency department complaining of worsening back pain Acute on Chronic back pain due to Spinal L4-L5 stenosis. Present on admission Chronic issues now causing some disability for the patient. Patient lives alone and independently - Physical therapy working with patient, have recommended SNF - Orthopedic consultation to consider surgical options - no note in chart - Oxycodone PRN pain - Social work consultation -- Now on gabapentin, doesn't appear to have needed prn pain meds recently Right leg cellulitis. Present on admission. resolving -Continue Augmentin -Negative for DVT -Negative for UTI Hyponatremia. Present on admission. Normal December 03 and . Possibly secondary to SIADH, currently just treated with fluid restriction (resolved) - Initially Suspected due to hypovolemia and dehydration. TSH 4.0 - Urine osmolality, serum osmolality, urine sodium, random cortisol seem to be more consistent with SIADH - Echocardiogram 12/02: Normal left ventricle size with ejection fraction 60-65%. - Initial IV fluids worse discontinued on 12/02 -Discontinue fluid restriction 800ml daily -Nephrology consulted and had some concerns for adrenal insufficiency -Chest CT scan was negative for new masses Hypothyroidism -TSH within normal limits Hepatic lesion -Hepatic lesion noted on abdominal CT scan recommended a follow-up ultrasound recommended in 3 months Adnexal mass: - Abdominal CT: 3.8 x 3.2 cm left adnexal region mass. Ovarian carcinoma cannot be excluded. - Pelvic ultrasound inconclusive secondary to bowel loops overriding the ovaries -Follow up pelvic ultrasound Hypoglycemia (resolved) - Blood glucose was 21 on the a.m. of 12/02, protocol was initiated with D5 - Patient was thought to be having a stroke, code stroke was called. - Patient eventually recovered after receiving the D5 amp, completely back to back normal - CT of head was ordered, negative for acute findings. - EKG was ordered and did not show any acute findings or changes - There is certainly a concern for adrenal insufficiency per Dr. Salmeron. - Due to her glucose checks are ordered - Code stroke was called 12/02 morning it was not clear immediately what was wrong with patient. Serum ammonia levels, acetone levels, lactic acid are all within normal - Dr Qureshi, Endocrinology consulted 12/02: - Acetaminophen as needed for mild pain/fever/headache - Bowel regimen as needed - Antiemetic as needed Disposition: The patient has been worked up for SIADH and also for her hypoglycemia concerns. The patient at this time is clinically stable and all of her labs have returned to normal. At this time it is unclear as to why the patient became dehydrated as her labs pointed towards SIADH but this does not seem to be case at this time. The patient however does seem to have some increasing dementia and does not seem to be safe/Jodi to return home so we will consider a [place] [facility] [place] facility for the patient at this time. The patient does seem to be getting stronger with physical therapy. GI Prophylaxis: H2 michelle VTE Prophylaxis: Sub-Q Heparin (Unfractionated) Resuscitation Status: CPR: Attempt Resuscitation Peyton Silva DO Dec 06, 2016 16:10
[2016-12-06 16:38] VITALS: BP 110/65; PULSE 71; RESP 20; O2SAT 95
[2016-12-06 21:06] VITALS: BP 116/69; PULSE 67; RESP 18; O2SAT 96
[2016-12-07 00:39] VITALS: BP 106/60; PULSE 80; RESP 18; O2SAT 97
[2016-12-07 05:53] VITALS: BP 126/63; PULSE 76; RESP 17; O2SAT 94
[2016-12-07 06:17] LABS: Mean Corpuscular Hemoglobin 31.9 pg (27.0-35.0); Mean Corpuscular Volume 94.9 fL (81-100)
--- NOTE | 2016-12-07 06:28 | NUR ---
Shift Note Assumed pt care at 1900, pt a/o able to make needs known, BG at 2350 at 84, at 0508 at 67, given high sugar drink, recheck 1 hr after, BG at 90, pt has no signs of hypoglycemia at this time, qhrly checks done, call light in reach.
[2016-12-07 06:46] LABS: Magnesium 1.8 mg/dL (1.6-2.6)
[2016-12-07] MEDS: Famotidine Inj 20 MG in IV Premix 1 EACH IV SCH ×2 (08:41→20:06)
[2016-12-07 10:28] VITALS: BP 117/61; PULSE 66; RESP 16; O2SAT 94
--- NOTE | 2016-12-07 11:59 | NUR ---
Evaluation completed. Please go to "Notes" then click on "Assessments and Notes" (bottom left corner of screen). Then select appropriate discipline tab on top of screen.
--- NOTE | 2016-12-07 15:12 | PCM.PNMED ---
Subjective Date of Service December 07, 2016 Subjective Patient was seen and examined at bedside today. Patient denies any chest pain, shortness of breath, nausea, vomiting, diarrhea. Overnight events: None Exam Vital Signs Vital Sign - Last Date Time Temp Pulse Resp B/P Pulse Ox O2 Delivery O2 Flow Rate FiO2 12/07/16 10:28 36.9 66 16 117/61 94 Room Air Intake and Output 12/06/16 12/06/16 12/07/16 Cumulative From/Thru 15:00 23:00 07:00 11/30/16 22:49 - 12/07/16 05:53 Intake Total 850 ml 300 ml 7964 ml Output Total 450 ml 8600 ml Balance 850 ml -150 ml -636 ml Intake Oral 750 ml 250 ml 5429 ml IV Total 100 ml 50 ml 2535 ml Output Urine Total 450 ml 8250 ml Urine/Stool Mix 350 ml # Voids 3 13 # Bowel Movements 2 7 Exam Physical Exam: GEN: Patient was awake, alert, responding appropriately to questions HEENT: Pupils equal round and reactive to light, extraocular eye muscles intact , Neck soft supple, trachea midline, nomocephalic/atraumatic CV: +S1/S2, regular rate and rhythm, systolic murmur auscultated Respiratory: CTAB, no wheezes, rales, rhonchi GI: +bowel sounds x4, soft, compressible, nontender to palpation EXT: Positive for cyanosis secondary to venous stasis, +1 nonpitting edema, multiple nodular lesions of the lower extremities bilaterally Neuro: Cranial nerves II-XII grossly intact Psych: mood and affect were appropriate IVs and Medications Medications Reviewed: Medications were reviewed in detail Lab and Diagnostics Result Diagram: 12/07/1625 12/07/16 0525 X-Rays, CTs and MRIs US VENOUS LEG DUPLEX UNILATERAL, RIGHT IMPRESSION: No evidence of deep vein thrombosis involving the right lower extremity. Dictated by: Teena Wright MD, PhD on 11/27/2016 at 21:43 Approved by: Teena Wright MD, PhD on 11/27/2016 at 21:43 CT C-Spine Interpretation CONCLUSION: No evidence of fracture or subluxation. Degenerative changes and disc bulge with central canal stenosis at L4-5. Osteopenia. Right nephrolithiasis. Other findings as above. This report was transmitted to the emergency room at 12/01/2016 - 12:56:16 AM PDT. Study type: CT no contrast Interpretation / Wet Read by: Interpret - Radiologist Echocardiogram Report Reason For Study: Dizziness Interpretation Summary Normal left ventricle size with ejection fraction 60-65%. Severely dilated left atrium. Moderately dilated right atrium. Mild aortic valve sclerosis. Mild to moderate aortic regurgitation. Mild mitral annular calcification. Mild mitral regurgitation. Mild tricuspid regurgitation. The right ventricular systolic pressure is estimated at 40 mmHg assuming a right atrial pressure of 15 mm Hg. Comparison is made with the echocardiogram of 01/08/2015, there has been no significant change. Electronically signed by: Bessie Denise on Reading Physician:12/02/2016 03:03 PM Assessment & Plan Kathryn Rodriguez is a 71 year old female with Scoliosis and osteoporosis presenting to [facility] emergency department complaining of worsening back pain Acute on Chronic back pain due to Spinal L4-L5 stenosis. Present on admission Chronic issues now causing some disability for the patient. Patient lives alone and independently - Physical therapy working with patient, have recommended SNF - Orthopedic consultation to consider surgical options - no note in chart - Oxycodone PRN pain - Social work consultation -- Now on gabapentin, doesn't appear to have needed prn pain meds recently Right leg cellulitis. Present on admission. resolving -Continue Augmentin -Negative for DVT -Negative for UTI Hyponatremia. Present on admission. Normal December 03 and . Possibly secondary to SIADH, currently just treated with fluid restriction (resolved) - Initially Suspected due to hypovolemia and dehydration. TSH 4.0 - Urine osmolality, serum osmolality, urine sodium, random cortisol seem to be more consistent with SIADH - Echocardiogram 12/02: Normal left ventricle size with ejection fraction 60-65%. - Initial IV fluids worse discontinued on 12/02 -Discontinue fluid restriction 800ml daily -Nephrology consulted and had some concerns for adrenal insufficiency -Chest CT scan was negative for new masses Hypothyroidism -TSH within normal limits Hepatic lesion -Hepatic lesion noted on abdominal CT scan recommended a follow-up ultrasound recommended in 3 months Adnexal mass: - Abdominal CT: 3.8 x 3.2 cm left adnexal region mass. Ovarian carcinoma cannot be excluded. - Pelvic ultrasound inconclusive secondary to bowel loops overriding the ovaries -Follow up pelvic ultrasound Hypoglycemia (resolved) - Blood glucose was 21 on the a.m. of 12/02, protocol was initiated with D5 - Patient was thought to be having a stroke, code stroke was called. - Patient eventually recovered after receiving the D5 amp, completely back to back normal - CT of head was ordered, negative for acute findings. - EKG was ordered and did not show any acute findings or changes - There is certainly a concern for adrenal insufficiency per Dr. Salmeron. - Due to her glucose checks are ordered - Code stroke was called 12/02 morning it was not clear immediately what was wrong with patient. Serum ammonia levels, acetone levels, lactic acid are all within normal - Dr Qureshi, Endocrinology consulted 12/02: - Acetaminophen as needed for mild pain/fever/headache - Bowel regimen as needed - Antiemetic as needed Disposition: The patient seems to be progressing well. The patient at this time is progressing well in physical therapy however at this time she does not seem to be a safe candidate to be discharged directly home. We will search for an assisted living or chcf facility for the patient at this time. GI Prophylaxis: H2 michelle VTE Prophylaxis: Sub-Q Heparin (Unfractionated) Resuscitation Status: CPR: Attempt Resuscitation Peyton Silva DO December 07, 2016 15:11
--- NOTE | 2016-12-07 15:41 | NUR ---
Social Work: Continued discharge Planning Data & Assessment: SW met with patient and patient's daughter at bedside to discuss discharge planning. Patient and patient's daughter were both aware that Occupational Therapy, "recommend short-term SNF for daily therapeutic intervention." and Physical therapy stated that patient "would benefit from continued PT for higher level balance training and progression to LRAD (at baseline pt uses no AD). Patient and patient's daughter chose [facility] and SW spoke with Ame at [facility] and she requested authorization for the patient. If the patient is not given authorization for [facility]. The patient's plan is to discharge home with [facility] and in home caregivers. Patient chose [facility] because her friend Lindsay has had it in the past. Patient's daughter Elida [phone] will be leaving on 12/08/16 and the patient has requested that her daughter be called with an update prior to her discharge. Patient stated that her friend Lindsay [phone] can be called if her daughter is not available. [facility] has been given access to patient's chart. SW will continue to follow and assist patient throughout stay. Plan: Patient will either discharge to [facility] if authorized by insurance or Home with [facility] and Caregivers. Patient friend Lindsay will transport her home if needed at discharge. SW will continue to follow. Chloe Morton LMSW, OSIRIS
--- NOTE | 2016-12-07 17:07 | NUR ---
NUTRITION FOLLOW UP: ASSESS: 71YO F admit with back pain s2/2 spinal stenosis, orthopedics consult pending; adnexal mass found, f/u pelvic ultrasound. Pt with improving appetite/po intake. Hypoglycemic episodes noted with recent blood glucose of 21,pt educated on . PMHX: Osteoarthritis,Reynauds,scoliosis,breast CA s/p surgery DIET: General. PO 50-100% LABS: Alb 3.5 MEDS: Reviewed GI:+ BM 12/07 WEIGHT: 63.0kg BMI: 25.4 EST.NEEDS: 1299-4368 kcal,60-75g pro (25-30kcal/kg;1.0-1.2g/kg pro) NUTRITION DIAGNOSIS: (1) Inadequate oral intake related to decreased appetite, n/v as evidenced by po intake 0-25% x 1d and reported depressed appetite prior to admit--- IMPROVING INTERVENTION: (1)Continue with supplements MONITOR/EVALUATE: PO intake, lab values, weight, labs. F/U per moderate risk.
--- NOTE | 2016-12-07 19:38 | NUR ---
Mentation Patient more alert and coherent, ambulated with PT today using FWW, still awaiting discharge plan SNIF vs. Home health, to be determined in the morning. Will continue to monitor.
[2016-12-07 20:14] VITALS: BP 115/72; PULSE 65; RESP 16; O2SAT 95
[2016-12-08 00:32] VITALS: BP 119/58; PULSE 55; RESP 14; O2SAT 94
[2016-12-08 05:10] VITALS: BP 117/64; PULSE 61; RESP 15; O2SAT 96
--- NOTE | 2016-12-08 06:44 | NUR ---
Pt's called around 2300 looking for information on when her discharge is, what is "holding it up" and his concerns over how much money of his insurance is being used. This nurse deferred him to his daughter or to showing up for morning rounds to discuss with doctor specific questions. He stated he cannot make it in due to a disability. He seemed satisfied that his was well taken care of and that his daughter may have more information for him.
--- NOTE | 2016-12-08 06:47 | NUR ---
Mentation Pt's mentation throughout the night was much improved from this nurse's shift with same patient several days prior. There was no confusion as to location or why she is here. A&Ox4.
[2016-12-08 07:12] LABS: C-Peptide 0.6 ng/mL (1.1-4.4)
[2016-12-08] MEDS: Famotidine Inj 20 MG in IV Premix 1 EACH IV SCH (08:53)
[2016-12-08 09:59] VITALS: BP 130/64; PULSE 70; RESP 16; O2SAT 95
[2016-12-08 10:15] LABS: Aldosterone/Renin Ratio 18.9 (0.0-30.0); Renin Activity 0.354 ng/mL/hr (0.167-5.380)
[2016-12-08 13:52] VITALS: BP 103/59; PULSE 66; RESP 16; O2SAT 97
--- NOTE | 2016-12-08 14:36 | NUR ---
Physical therapy patient is alert and oriented X3. able to make needs known. Patient using FWW for ambulation and steady on feet using walker with one person assist. C/o pain to back 2 times so far this shift. PRN Tylenol given as ordered with effectiveness, patient is able to eat meals at bed side in her chair, walk with Physical therapy. Ice pack for back pain with relief per patient. Call light with in reach for safety. Stable mood. Pending authorization per marriage and family social worker. Continue to monitor back pain and comfort.
--- NOTE | 2016-12-08 15:12 | NUR ---
Social Work: Readiness for Discharge Data & Assessment: EMR reviewed. Pt is on day 7 of hospitalization for spinal stenosis, loss of ambulation ability. Pt is nearing discharge. MAXI received call from cindy Mccloud at [facility], who reports that pt's payor has denied coverage of a SNF stay. MAXI met with pt and pt's friend Lindsay regarding discharge planning. Pt states understanding of payor denial. Pt and friend are concerned about pt going home with limited supports. MAXI confirmed that pt has private pay caregiving resources, including [facility]. Pt and friend requested conversation with MD regarding medical questions, SW facilitated this. After this conversation, MAXI spoke with MD who stated concern about pt's decrease in mobility. MAXI requested PT to re-evaluate pt for mobility. PT evaluation complete, recommending HHPT at this time. MAXI explored with pt and family different care options including a respite bed at assisted living or home with private pay caregivers and Home Health. MAXI provided respite bed information for pt and friend to coordinate. Lindsay and pt coordinating with Matt from [facility] regarding respite stay. MAXI also confirmed HH choice of pt-- [facility]. MAXI spoke with Bakari, [facility] liaison, regarding pt's referral. Bakari states they can accept pt for RN PT OT with an opening on . F2F in folder to be completed. MAXI provided this information to the pt and friend. Pt and friend confirmed that a respite bed is the preference for the pt at this time. UR Specialist to contact Matt and provide requested clinical information for respite stay. MAXI updated UR RN. MAXI left message for pt's daughter Elida updating her regarding pt's discharge plan. MAXI continues to follow. Plan: PT continues to recommend HHPT. Pt and family continue to have concerns about pt's senior care needs. Pt to discharge to respite bed at [facility]. JESSIE Malin
[2016-12-08] MEDS ORDERED: ASPI-973 PO (15:38)
[2016-12-08] MEDS ORDERED: OXYC5TAB72 PO (15:38)
[2016-12-08] MEDS ORDERED: GABA100C PO (15:38)
--- NOTE | 2016-12-08 15:53 | PCM.DIMED ---
Discharge Instructions Date of Service December 08, 2016 Dates of Hospitalization Dec 01, 2016 at 03:49 Discharge Diagnosis Discharge Diagnosis Acute on chronic back pain secondary to spinal stenosis L4 through L5 Right leg cellulitis Hyponatremia (resolved) Hypothyroidism Hepatic lesion found Adnexal mass Hypoglycemia (resolved) Test Results There was an incidental finding of a mass on your liver and should be followed up in 3 months There was also an incidental mass found in the pelvis. Pelvic ultrasound here was inconclusive and a follow-up ultrasound should be done Diet No restrictions Activity No restrictions (gradually returned to her normal daily activities) Call your provider Fever or Chills, Shortness of breath, Chest pain, Vomitting, Excessive diarrhea , Weakness (unilateral) Patient Instructions 1) Please follow-up with your primary care physician in order to have a follow- up ultrasound of your liver in 3 months for reassessment of the mass that was found 2) Please follow-up with your primary care physician in order to have a pelvic ultrasound within one week Follow-up with PCP in: 1 week (if an appointment has not been made please call to schedule an appointment) Peyton Silva DO December 08, 2016 15:53
[2016-12-08] MEDS ORDERED: arnica TOPICAL (16:19)
--- NOTE | 2016-12-08 16:23 | PCM.DC.MED ---
Discharge Summary Date of Service December 08, 2016 Dates of Hospitalization Date of Hospital Admission Dec 01, 2016 at 03:49 Date of Discharge: December 08, 2016 Providers: Admitting Physician: Deepak Pereira MD Primary Care Physician: Lucila Retana ND, LAc Attending Physician: Deepak Pereira MD Diagnosis at Time of Discharge Diagnosis at Time of Discharge Acute on chronic back pain secondary to spinal stenosis L4 through L5 Right leg cellulitis Hyponatremia (resolved) Hypothyroidism Hepatic lesion found Adnexal mass Hypoglycemia (resolved) Procedures XRay, CTs & MRIs US VENOUS LEG DUPLEX UNILATERAL, RIGHT IMPRESSION: No evidence of deep vein thrombosis involving the right lower extremity. Dictated by: Teena Wright MD, PhD on 11/27/2016 at 21:43 Approved by: Teena Wright MD, PhD on 11/27/2016 at 21:43 CT C-Spine Interpretation CONCLUSION: No evidence of fracture or subluxation. Degenerative changes and disc bulge with central canal stenosis at L4-5. Osteopenia. Right nephrolithiasis. Other findings as above. This report was transmitted to the emergency room at 12/01/2016 - 12:56:16 AM PDT. Study type: CT no contrast Interpretation / Wet Read by: Interpret - Radiologist Echocardiogram Report Reason For Study: Dizziness Interpretation Summary Normal left ventricle size with ejection fraction 60-65%. Severely dilated left atrium. Moderately dilated right atrium. Mild aortic valve sclerosis. Mild to moderate aortic regurgitation. Mild mitral annular calcification. Mild mitral regurgitation. Mild tricuspid regurgitation. The right ventricular systolic pressure is estimated at 40 mmHg assuming a right atrial pressure of 15 mm Hg. Comparison is made with the echocardiogram of 01/08/2015, there has been no significant change. Electronically signed by: Bessie Denise on Reading Physician:12/02/2016 03:03 PM PROCEDURE: US BILATERAL DUPLEX DOPPLER IMAGING OF THE CAROTIDS ([id number]) IMPRESSION: No hemodynamically significant lesions of the extracranial internal carotid arteries. Dictated by: Khalif Coburn M.D. on 12/02/2016 at 17:40 Approved by: Khalif Coburn M.D. on 12/02/2016 at 17:42 PROCEDURE: CT CHEST WITH CONTRAST ([id number]) IMPRESSION: 1. No evidence of malignancy. 2. Bilateral lower lobe atelectasis versus pneumonia with small bilateral pleural effusions. Dictated by: Tenisha Alfaro M.D. on 12/02/2016 at 16:50 Approved by: Tenisha Alfaro M.D. on 12/02/2016 at 16:55 PROCEDURE: CT ABDOMEN W&WO CONTRAST, PELVIS WITH CONTRAST IMPRESSION: 1. No pancreatic mass identified. 2. Small arterial phase enhancing hepatic lesion with imaging characteristics most suggestive of a hepatic hemangioma, however hypervascular neoplastic processes including solitary metastatic lesion could produce a similar appearance. Recommend abdominal ultrasound in 3 months to confirm stability. 3. 3.8 x 3.2 cm left adnexal region mass. Ovarian carcinoma cannot be excluded. Recommend pelvic ultrasound for further evaluation. 3. Small bilateral pleural effusions. 4. Atherosclerosis. 5. Small amount of free intraperitoneal fluid. 6. Cholelithiasis. 7. Nonobstructing bilateral renal stones. Dictated by: Teena Wright MD, PhD on 12/04/2016 at 8:42 Approved by: Teena Wright MD, PhD on 12/04/2016 at 9:08 PROCEDURE: US PELVIC SONOGRAM + TRANSVAGINAL SONOGRAM INDICATIONS: adnexal mass seen on CT IMPRESSION: 1. Secondary to overlying bowel gas loops within the pelvis, adnexal regions including the region of concern within the left adnexal region are unable to be evaluated. Followup ultrasound may be obtained for better visualization and bowel loops are less prominent. Otherwise, further evaluation with MRI may be obtained. Dictated by: Yissel Palacio M.D. on 12/06/2016 at 10:31 Approved by: Yissel Palacio M.D. on 12/06/2016 at 10:34 Brief History Subjective: She continues to report vague hallucinatory phenomena, even when euglycemic. Fasting protocol achieved <55 mg/dl glucose endpoint. At BG 54 mg/dl at 6:30 AM , patient seems to be appropriately sleepy and mildly encephalopathic, but not acutely so. Labs have been drawn. Hospital Course Kathryn Rodriguez is a 71 year old female with Scoliosis and osteoporosis presenting to [facility] emergency department complaining of worsening back pain The patient presented to the emergency room and was admitted for uncontrolled back pain secondary to spinal stenosis at L4-L5. The patient currently does not have a primary care physician and has been treated by a natropathic doctor and has not seen a medical doctor in quite some time. The patient is on multiple homeopathic remedies. During this particular hospital stay the patient had significant electrolyte abnormalities with hypoglycemia as well as hypernatremia and at one point thought this may be secondary to SIADH. The patient was seen by endocrinology Dr. Qureshi and nephrology Dr. Salmeron and the patient spontaneously resolved. Patient's workup for SIADH was negative and patient's endocrine workup seemed to be negative as well. The patient does have a glucose that runs low however is not significant. The patient did have an abdominal CT scan which showed a hepatic lesion and should be followed up in ultrasound in the next 3 months. The patient was also found to have a pelvic mass which was recommended to have a follow-up ultrasound and during this ultrasound due to bowel loops overriding the ovaries we were unable to assess the patient for possible tumor in the ovary. It is recommended that the patient follow-up in one week for a repeat ultrasound of the pelvis. The patient is being discharged in stable condition to assisted living with home health services for home health PT and OT. The patient is not clinically stable to return home alone but in assisted living situation with home health PT is more than adequate for this patient. The patient will now be seen in the resident clinic for her primary care services. 1) Follow up pelvic ultrasound in 1 week 2) Follow up liver ultrasound in 3 months For full hospital course see below: Acute on Chronic back pain due to Spinal L4-L5 stenosis. Present on admission Chronic issues now causing some disability for the patient. Patient lives alone and independently - Physical therapy working with patient, have recommended SNF - Orthopedic consultation to consider surgical options - no note in chart - Oxycodone PRN pain - Social work consultation -- Now on gabapentin, doesn't appear to have needed prn pain meds recently Right leg cellulitis. Present on admission. resolving -Continue Augmentin -Negative for DVT -Negative for UTI Hyponatremia. Present on admission. Normal December 03 and . Possibly secondary to SIADH, currently just treated with fluid restriction (resolved) - Initially Suspected due to hypovolemia and dehydration. TSH 4.0 - Urine osmolality, serum osmolality, urine sodium, random cortisol seem to be more consistent with SIADH - Echocardiogram 12/02: Normal left ventricle size with ejection fraction 60-65%. - Initial IV fluids worse discontinued on 12/02 -Discontinue fluid restriction 800ml daily -Nephrology consulted and had some concerns for adrenal insufficiency -Chest CT scan was negative for new masses Hypothyroidism -TSH within normal limits Hepatic lesion -Hepatic lesion noted on abdominal CT scan recommended a follow-up ultrasound recommended in 3 months Adnexal mass: - Abdominal CT: 3.8 x 3.2 cm left adnexal region mass. Ovarian carcinoma cannot be excluded. - Pelvic ultrasound inconclusive secondary to bowel loops overriding the ovaries -Follow up pelvic ultrasound Hypoglycemia (resolved) - Blood glucose was 21 on the a.m. of 12/02, protocol was initiated with D5 - Patient was thought to be having a stroke, code stroke was called. - Patient eventually recovered after receiving the D5 amp, completely back to back normal - CT of head was ordered, negative for acute findings. - EKG was ordered and did not show any acute findings or changes - There is certainly a concern for adrenal insufficiency per Dr. Salmeron. - Due to her glucose checks are ordered - Code stroke was called 12/02 morning it was not clear immediately what was wrong with patient. Serum ammonia levels, acetone levels, lactic acid are all within normal - Dr Qureshi, Endocrinology consulted 12/02: - Acetaminophen as needed for mild pain/fever/headache - Bowel regimen as needed - Antiemetic as needed Exam Vital Signs (Last) Date Time Temp Pulse Resp B/P Pulse Ox O2 Delivery O2 Flow Rate FiO2 12/08/16 13:52 36.8 66 16 103/59 97 Room Air Exam Physical Exam: GEN: Patient was awake, alert, responding appropriately to questions HEENT: Pupils equal round and reactive to light, extraocular eye muscles intact , Neck soft supple, trachea midline, nomocephalic/atraumatic CV: +S1/S2, regular rate and rhythm, systolic murmur auscultated Respiratory: CTAB, no wheezes, rales, rhonchi GI: +bowel sounds x4, soft, compressible, nontender to palpation EXT: no clubbing, cyanosis, edema Neuro: Cranial nerves II-XII grossly intact Psych: mood and affect were appropriate Test 12/01/16 00:50 12/01/16 01:00 12/01/16 04:00 12/01/16 16:18 Urine Color Yellow (YELLOW) Urine Appearance Clear (CLEAR,HAZY) Urine pH 7.0 (5.0-8.0) Urine Specific [place] 1.015 (1.003-1.035) Urine Protein Negativemg/dL (NEG,TRACE) Urine Glucose (UA) Negativemg/dL (NEGATIVE) Urine Ketones Tracemg/dL (NEGATIVE) Urine Occult Blood Negative (NEGATIVE) Urine Nitrite Negative (NEGATIVE) Urine Bilirubin Negative (NEGATIVE) Urine Urobilinogen Normalmg/dL (NORMAL) Urine Leukocyte Esterase Negative (NEGATIVE) Urine RBC 0-2/hpf (0-2) Urine WBC 0-5/hpf (0-5) Urine Epithelial Cells Occasional/hpf (NONE-MOD) Urine Crystals Amorphous phosphates Urine Bacteria None/hpf (NONE-FEW) Urine Hyaline Casts None/lpf (NONE) Urine Granular Casts None seen (NONE SEEN) Urine Waxy Casts None seen (NONE SEEN) Urine Red Blood Cell Casts None seen (NONE SEEN) Urine White Blood Cell Casts None seen (NONE SEEN) Urine Mucus Present (None Seen) Urine Trichomonas None seen (NONE SEEN) Urine Yeast None (NONE SEEN) Urine Culture Reflexed Not indicated Prothrombin Time 9.9sec (8.1-12.5) Prothromb Time International Ratio 0.93ratio Activated Partial Thromboplast Time 30.8sec (22.8-33.0) Thyroid Stimulating Hormone (TSH) 4.010uIU/mL (0.450-4.500) Hepatitis A IgM Antibody Negative (Negative) Hepatitis B Surface Antigen Negative (Negative) Hepatitis B Core IgM Antibody Negative (Negative) Hepatitis C Antibody <0.1s/co ratio (0.0-0.9) Hepatitis C Comment Comment (.) Osmolality 262 (275-300) Test 12/01/16 19:58 12/02/16 05:45 12/02/16 07:37 12/02/16 11:00 Urine Osmolality 418mOs/kH2O (250-1200) Urine Random Sodium 128mEq/L Insulin Level 1.5uIU/mL (2.6-24.9) Lactic Acid Level 1.0mmol/L (0.4-2.0) Ammonia 43ug/dL (18-53) Total Creatine Kinase 92U/L (21-215) Creatine Kinase MB 17.5ng/mL (0.0-5.3) Creatine Kinase MB % 19.0% (0.0-5.0) Troponin T < 0.010ug/L (0.0-0.011) Pro-B-Type Natriuretic Peptide 316.8pg/mL (0-301) Acetone Level Negative% (0.000-0.010) Erythrocyte Sedimentation Rate 1mm/hr (0-40) Uric Acid 3.3mg/dL (2.6-7.2) Globulin (PEP) 1.9g/dL (2.2-3.9) Albumin/Globulin Ratio 1.5 (0.7-1.7) Rbiil-0-Rreeasucg 0.2g/dL (0.0-0.4) Jlowe-8-Uormpjgvf 0.4g/dL (0.4-1.0) Beta Globulins 0.8g/dL (0.7-1.3) Gamma Globulins 0.5g/dL (0.4-1.8) Serum Monoclonal Protein Not observedg/dL Protein Electrophoresis Comment Comment (.) Protein Electrophoresis Interpret Comment (.) Rheumatoid Factor 9.7IU/mL (0.0-13.9) Anti-Nuclear Antibody Screen Positive (Negative) Anti-Nuclear Antibody Comment Comment (.) SS-A/Ro Antibody <0.2AI (0.0-0.9) SS-B/La Antibody <0.2AI (0.0-0.9) Sm ([place]) IgG Antibody, Quant <0.2AI (0.0-0.9) GIS ANALYST DEVELOPER Antibody 1.2AI (0.0-0.9) Anti-Double Strand DNA Antibody 1IU/mL (0-9) Complement C3 90mg/dL (82-167) Complement C4 26mg/dL (14-44) Test 12/02/16 15:50 12/02/16 17:46 12/03/16 06:15 12/04/16 06:20 Cortisol 38.2ug/dL (.) Renin Activity 0.354ng/mL/hr (0.167-5.380) Aldosterone 6.7ng/dL (0.0-30.0) Aldosterone/Renin Ratio 18.9 (0.0-30.0) Neutrophils (%) (Auto) 72.7% (40-74) Lymphocytes (%) (Auto) 17.6% (14-46) Monocytes (%) (Auto) 9.1% (4-12) Eosinophils (%) (Auto) 0.6% (0-5) Basophils (%) (Auto) 0% (0-3) CA 27.29 20.0U/mL (0.0-38.6) Chromogranin A 5nmol/L (0-5) Test 12/04/16 15:55 12/05/16 06:20 12/05/16 06:50 12/07/16 05:25 Histone Antibodies 0.4Units (0.0-0.9) C-Peptide 0.6ng/mL (1.1-4.4) White Blood Count 6.7th/mm3 (3.8-10.1) Red Blood Count 3.70mil/mm3 (3.90-5.20) Hemoglobin 11.8g/dL (12.0-15.6) Hematocrit 35.1% (35.0-46.0) Mean Corpuscular Volume 94.9fL (81-100) Mean Corpuscular Hemoglobin 31.9pg (27.0-35.0) Mean Corpuscular Hemoglobin Concent 33.6% (32.0-37.0) Red Cell Distribution Width 16.5% (12.3-15.4) Platelet Count 212bil/L (150-400) Sodium Level 142mEq/L (134-144) Potassium Level 4.4mEq/L (3.5-5.2) Chloride Level 102mEq/L (97-108) Carbon Dioxide Level 28mmol/L (18-29) Blood Urea Nitrogen 18mg/dL (8-27) Creatinine 0.69mg/dL (0.57-1.00) Estimat Glomerular Filtration Rate 120mL/min (>59) Glucose Level 83mg/dL (60-99) Calcium Level 9.0mg/dL (8.5-10.1) Magnesium Level 1.8mg/dL (1.6-2.6) Total Bilirubin 0.3mg/dL (0.0-1.2) Aspartate Amino Transf (AST/SGOT) 32U/L (0-50) Alanine Aminotransferase (ALT/SGPT) 40U/L (0-32) Alkaline Phosphatase 95U/L (25-165) Total Protein 5.1g/dL (6.4-8.4) Albumin 3.5g/dL (3.4-5.0) Discharge Medications Discharge Medications ([arnica]) 30 GM TOPICAL up to 4 times a day Prescribed by: RAFY STEWART DO Aspirin (Aspirin) 81 Mg Tablet 81 MG PO DAILY Prescribed by: RAFY STEWART DO Bimatoprost (Bimatoprost) 0.03 % Drops 2.5 ML OP DAILY (Reported) Gabapentin (Neurontin) 100 Mg Capsule 100 MG PO TID Prescribed by: RAFY STEWART DO Prednisolone Acetate (Prednisolone Acetate) 5 Ml Drops.susp 1 GTT BOTH_EYES QID (Reported) Thyroid,Pork ([place] Thyroid) 30 Mg Tablet 90 MG PO DAILY Prescribed by: RAFY STEWART DO As needed oxyCODONE (oxyCODONE) 5 Mg Tablet 5 MG PO Q4H PRN PRN For Moderate Pain Prescribed by: RAFY STEWART DO Followup Plan Discharge Diet: No restrictions Discharge Activity: No restrictions (gradually returned to her normal daily activities) Patient Instructions 1) Please follow-up with your primary care physician in order to have a follow- up ultrasound of your liver in 3 months for reassessment of the mass that was found 2) Please follow-up with your primary care physician in order to have a pelvic ultrasound within one week Follow-up Provider: NICK GONZALES DO Follow-up with PCP in: 1 week (December 17 at 4:15pm in the residency clinic) Time spent Greater than 45 minutes copies to: NICK GONZALES Precious L DO December 08, 2016 16:23
[2016-12-08] MEDS ORDERED: THYR30TA2 PO (16:24)
--- NOTE | 2016-12-08 16:30 | NUR ---
Social Work: Discharge Data: EMR reviewed. Pt is on day 7 of hospitalization for spinal stenosis, loss of ambulation ability. Pt is medically stable for discharge. MAXI spoke with pt and friend Lindsay at bedside regarding respite at [facility]. Lindsay reports that she is ordering a hospital bed through [facility] to be delivered to [facility] today, as [facility] has no furnished respite rooms available, but is agreeable to providing an empty room regardless. [facility] to assess pt prior to discharge. MAXI spoke with pt and family regarding Home Health, they are agreeable to beginning HH services while at [facility]. MAXI updated Bakari, [facility] liaison, regarding pt's discharge. F2F faxed to [facility]. Hard copy is in chart. Discharge Orders and hard scripts were faxed to Matt at [facility] [phone]. Hard scripts to be given to pt at discharge as well. Lindsay to transport pt to [facility] this evening. MD, RN, and pt/family all updated to plan. MAXI left message for pt's daughter Elida, informed pt of this. Pt states she will update Elida as well, since Elida is traveling at the moment. Assessment: Pt who would benefit from respite care and RN PT OT. Plan: Pt to discharge to respite at [facility] with [facility] RN PT OT to begin on at [facility]. F2F faxed and hard copy placed in chart. Orders and Scripts faxed to [facility]. RN, pt/family all updated and agreeable to plan. Oma Greer ARCHITECTURAL ASSOCIATE
--- NOTE | 2016-12-08 17:18 | NUR ---
Discharge patient left unit approx [phone] accompanied by nursing staff along with friend. Reviewed discharge paper work, December [address] [place] Li, new prescription by hospitalist, and written care notes. patient understood discharge instructions and signed the paper work. No c/o pain or sign and symptoms of pain noted. IV discontinued with out difficulty.
--- NOTE | 2016-12-08 17:49 | NUR ---
Clarification of DC medication [place] from pharmacy, [phone], called to clarify thyroid medication for DC as MD only ordered a 10 day supply. Paged and texted MD pharmacy return number to clarify
[2016-12-09 12:09] LABS: Proinsulin 1.4 pmol/L (0.0-10.0)
== END 2016-12-08 17:10 | disposition home health service (06) | DRG 552 ==
LOC: SED 22:43 → MOC 12-01 03:49 → OBSVTOIN 12-01 03:49 → MOC 12-01 04:18
PROVIDERS: ADMIT Hospitalist; ATTEND Hospitalist
DX: M48.06 Spinal stenosis, lumbar region (principal); L03.115 Cellulitis of right lower limb; E87.1 Hypo-osmolality and hyponatremia; E16.2 Hypoglycemia, unspecified; E03.9 Hypothyroidism, unspecified; K76.9 Liver disease, unspecified; R19.09 Other intra-abdominal and pelvic swelling, mass and lump